=== PATIENT | male | born 1955 | race Caucasian/White ===

== ENCOUNTER → 2018-08-13 | Outpatient (CLI) | payer OTHER ==
[2018-08-13 11:23] LABS: Basophils % (A) 1 %; Eosinophils # (A) 0.1 k/uL (0-0.7); Eosinophils % (A) 2 %; HCT 48.5 % (39.0-53.0); HGB 16.2 gm/dL (13.0-17.5); Lymphocytes # (A) 1.5 k/uL (1.0-4.8); Lymphocytes % (A) 26 %; MCH 31.3 pg (25.0-35.0); MCHC 33.3 g/dL (31.0-37.0); Mean Platelet Volume 7.2; Monocytes # (A) 0.3 k/uL (0-1.0); Monocytes % (A) 6 %; Neutrophils # (A) 3.5 k/uL (1.3-7.7); Neutrophils % (A) 63 %; Platelet Count 238 k/uL (150-450); RBC 5.16 m/uL (4.30-5.90); RDW 13.4 % (11.5-15.5); WBC 5.6 k/uL (3.8-10.6)
[2018-08-13 11:26] LABS: Anion Gap 7 mmol/L; Blood Urea Nitrogen 17 mg/dL (9-20); Calcium 9.9 mg/dL (8.4-10.2); Carbon Dioxide 28 mmol/L (22-30); Chloride 107 mmol/L (98-107); Glucose 85 mg/dL (74-99); Potassium 4.4 mmol/L (3.5-5.1); Sodium 142 mmol/L (137-145)
== END ==
LOC: LABPAT 09:59
PROVIDERS: ATTEND Urology
DX: Z01.812 Encounter for preprocedural laboratory examination (principal); D49.4 Neoplasm of unspecified behavior of bladder; R53.83 Other fatigue
CPT/HCPCS: 36415; 80048; 85025

== ENCOUNTER 2018-08-16 05:49 | Day surgery (SDC) | payer OTHER ==
[2018-08-09 12:14] VITALS: BMI 25.9
--- NOTE | 2018-08-13 17:07 | P.GSHP ---
History of Present Illness H&P Date: 08/13/18 Chief Complaint: Microhematuria The patient is a 63-year-old white male evaluated for microhematuria and voiding symptoms (dysuria and urinary frequency). Computed tomography scan revealed normal kidneys, but bladder wall thickening was noted. Cystoscopy shows a right lateral bladder wall tumor, sessile in appearance. He now comes for resection. - Constitutional Constitutional: Reports chronic headaches, Reports fatigue - Genitourinary (Male) Genitourinary: Reports hematuria Past Medical History Past Medical History: Cancer, Hearing Disorder / Deafness Additional Past Medical History / Comment(s): Current bladder cancer. Chronic back pain. Tinnitus/hard of hearing left ear. History of Any Multi-Drug Resistant Organisms: None Reported Past Surgical History: No Surgical Hx Reported Additional Past Surgical History / Comment(s): Colonsocopy Past Anesthesia/Blood Transfusion Reactions: No Reported Reaction Past Psychological History: No Psychological Hx Reported Smoking Status: Former smoker Past Alcohol Use History: Occasional Additional Past Alcohol Use History / Comment(s): Quit smoking 18 yrs ago. Past Drug Use History: Marijuana Additional Drug Use History / Comment(s): Has medical marijuana card, uses a couple of times per week. Aware no use 24 hrs prior to procedure. - Past Family History Father Family Medical History: Cancer Additional Family Medical History / Comment(s): Colorectal cancer. Medications and Allergies Home Medications Medication Instructions Recorded Confirmed Type Ascorbic Acid [Vitamin C] 1,000 mg PO DAILY 08/09/18 08/09/18 History Glucosamine Sulfate 500 mg PO DAILY 08/09/18 08/09/18 History Multivitamins, Thera [Multivitamin 1 tab PO DAILY 08/09/18 08/09/18 History (formulary)] Vitamin B 250 mg PO DAILY 08/09/18 08/09/18 History Allergies Allergy/AdvReac Type Severity Reaction Status Date / Time No Known Allergies Allergy Verified 08/09/18 11:45 Surgical - Exam - General well developed, well nourished, no distress - Neck no masses, trachea midline - Respiratory normal respiratory effort, clear to auscultation - Cardiovascular Rhythm: regular Abnormal Heart Sounds: no systolic murmur, no diastolic murmur, no rub, no S3 Gallop, no S4 Gallop, no click, no other - Abdomen Abdomen: soft, non tender, no guarding, no rigid, no rebound - Genitourinary normal penis with no external lesions, testicles non-tender - Rectum Rectum: normal sphincter tone, no masses - Psychiatric oriented to time, oriented to person, oriented to place, speech is normal, memory intact Results - Imaging CT scan - abdomen: report reviewed, image reviewed Assessment and Plan (1) Neoplasm of unspecified behavior of bladder Status: Acute Code(s): D49.4 - NEOPLASM OF UNSPECIFIED BEHAVIOR OF BLADDER SNOMED Code(s): 162719980 Plan: The patient was advised that the bladder tumor seen on cystoscopy likely represents urothelial carcinoma of the bladder. He now comes for cystoscopy, TURBT. The rationale for the procedure has been reviewed in detail with the patient. He is aware of potential risks, which include anesthesia, bleeding, infection, and bladder perforation.
[~2018-08-16 05:49] MED LIST: DEXAMETHASONE SOD PHOSPHATE 10 MG/ML 1 ML VIAL IV ONE; HYDROmorphone 0.5 MG/0.5 ML SYRINGE IVP PRN; LACTATED RINGERS 1,000 ML IV SCH; LIDOCAINE 1% 20 ML VIAL (10MG/ML) FOR IV START INTRADERMA PRN; MIDAZOLAM (PF) 2 MG/2 ML VIAL IV PRN; ONDANSETRON 4 MG/2 ML VIAL IVP ONE; SCOPOLAMINE 1.5MG/72HR PATCH TRANSDERM ONE
[2018-08-16 06:40] VITALS: RESP 16
[2018-08-16] MEDS ORDERED: fentaNYL (PF) 50 MCG/ML 2 ML AMP ONE (07:22)
[2018-08-16] MEDS ORDERED: LIDOCAINE 1% INJ 10MG/ML (20 ML MDV) ONE (07:22)
[2018-08-16] MEDS ORDERED: MIDAZOLAM 2 MG/2 ML VIAL ONE (07:22)
[2018-08-16] MEDS ORDERED: ROCURONIUM BROMIDE 10 MG/ML 10 ML VIAL IV ONE (07:22)
[2018-08-16] MEDS ORDERED: SUCCINYLCHOLINE CHLORIDE 100 MG/5 ML SYR IV ONE (07:22)
[2018-08-16] MEDS ORDERED: ePHEDrine SULFATE/0.9% NACL/PF 50 MG/5 ML SYRINGE IV ONE (07:22)
[2018-08-16] MEDS ORDERED: PROPOFOL 10 MG/ML 20 ML VIAL IV ONE (07:22)
[2018-08-16] MEDS ORDERED: NEOSTIGMINE 1 MG/ML 10 ML VIAL ONE (07:22)
[2018-08-16] MEDS ORDERED: GLYCOPYRROLATE 0.2 MG/ML 2 ML VIAL ONE (07:22)
[2018-08-16] MEDS ORDERED: LACTATED RINGERS 1,000 ML IV ONE (08:31)
--- NOTE | 2018-08-16 08:43 | P.OP ---
Date of Procedure: 08/16/18 Preoperative Diagnosis: Bladder tumor Postoperative Diagnosis: Same Procedure(s) Performed: Cystoscopy, transurethral resection of bladder tumor (large) Anesthesia: SABAA Surgeon: Garrison Garcia Estimated Blood Loss (ml): 10 IV fluids (ml): 800 Pathology: other (Right lateral bladder wall tumor fragments, biopsy of prostatic urethra.) Condition: stable Disposition: PACU Indications for Procedure: The patient is a 63-year-old white male evaluated for microhematuria and voiding symptoms (dysuria and urinary frequency). Computed tomography scan revealed normal kidneys, but bladder wall thickening was noted. Cystoscopy shows a right lateral bladder wall tumor, sessile in appearance. He now comes for resection. Operative Findings: Right lateral bladder wall tumor, sessile in appearance and likely muscle invasive. Description of Procedure: The patient was taken in the operating room and placed in the dorsal lithotomy position, with his legs supported in Francisco stirrups. The external genitalia was prepped and draped sterilely. The 24-Ugandan Storz resectoscope sheath was introduced into the bladder. The bladder was inspected. Both ureteral orifices were of normal anatomic location and configuration, and clear urine effluxed from both. The entire bladder was examined, revealing a sessile tumor on the right lateral bladder wall, covering an area of approximately 6 cm. No tumors were seen elsewhere in the bladder. The prostate was partially occluded, with a bilobar configuration. Using the cutting loop, the tumor was resected down to the muscle. Tumor was seen within the muscle bundles, consistent with muscular invasion. Excellent hemostasis was attained. Despite the fact that deep resection was performed, there was no evidence of bladder perforation. The resected tissue was saved and sent for pathologic examination. An 18-Ugandan Krause catheter was inserted. The return was essentially clear. The patient tolerated the procedure well. He was taken to the recovery room in stable condition.
[2018-08-16 09:05] VITALS: TEMP 97.3
[2018-08-16 11:29] VITALS: BP 135/71; PULSE 65
== END 2018-08-16 11:27 | disposition home or self-care (01) ==
LOC: OR 05:49
PROVIDERS: ATTEND Urology
DX: C67.2 Malignant neoplasm of lateral wall of bladder (principal); H91.90 Unspecified hearing loss, unspecified ear; Z87.891 Personal history of nicotine dependence; Z79.899 Other long term (current) drug therapy
CPT/HCPCS: 88305; 88307; 52240; J2250; J1100; J2710; J2405; J0690; J2001; J3010; J0330; J2704

== ENCOUNTER 2018-11-23 01:28 | Emergency (ER) | payer OTHER ==
[2018-11-23 01:38] VITALS: BP 117/78; PULSE 54; RESP 18; TEMP 97.5
--- NOTE | 2018-11-23 01:56 | ED ---
General Adult HPI - General Chief complaint: Wound/Laceration Stated complaint: port issue Time Seen by Provider: 11/23/18 01:42 Source: patient Mode of arrival: ambulatory Limitations: no limitations - History of Present Illness Initial comments: This patient is 63-year-old man with history of bladder cancer, who states that he is currently receiving chemotherapy infusion, and states that the infusion needle was probably dislodged from the infusion port. The patient states that he had been moving when the line at having a lot of chair and was tugged. This occurred about one in the afternoon. The patient did attempt to reach the on- call oncologist, phone [phone], and states he was told to go to the nearest emergency room. Patient states that his head oncologist is Dr. Gela Willard. Onset/Timin -: hour(s) Location: chest Improves with: none Worsens with: none Associated Symptoms: denies other symptoms - Related Data Home Medications Medication Instructions Recorded Confirmed Ascorbic Acid [Vitamin C] 1,000 mg PO DAILY 08/09/18 08/09/18 Glucosamine Sulfate 500 mg PO DAILY 08/09/18 08/09/18 Multivitamins, Thera [Multivitamin 1 tab PO DAILY 08/09/18 08/09/18 (formulary)] Vitamin B 250 mg PO DAILY 08/09/18 08/09/18 Allergies Allergy/AdvReac Type Severity Reaction Status Date / Time No Known Allergies Allergy Verified 11/23/18 01:38 Review of Systems ROS Statement: Those systems with pertinent positive or pertinent negative responses have been documented in the HPI. ROS Other: All systems not noted in ROS Statement are negative. Constitutional: Denies: fever, chills Respiratory: Denies: cough, dyspnea Cardiovascular: Denies: chest pain Skin: Reports: as per HPI. Denies: rash Hematological/Lymphatic: Denies: easy bleeding Past Medical History Past Medical History: Cancer, Hearing Disorder / Deafness Additional Past Medical History / Comment(s): Current bladder cancer. Chronic back pain. Tinnitus/hard of hearing left ear. History of Any Multi-Drug Resistant Organisms: None Reported Past Surgical History: No Surgical Hx Reported Additional Past Surgical History / Comment(s): Colonsocopy Past Anesthesia/Blood Transfusion Reactions: No Reported Reaction Past Psychological History: No Psychological Hx Reported Smoking Status: Former smoker Past Alcohol Use History: Occasional Past Drug Use History: Marijuana - Past Family History Father Family Medical History: Cancer Additional Family Medical History / Comment(s): Colorectal cancer. General Exam Limitations: no limitations General appearance: alert, in no apparent distress Head exam: Present: atraumatic, normocephalic Respiratory exam: Present: normal lung sounds bilaterally. Absent: respiratory distress, wheezes, rales, rhonchi, stridor Cardiovascular Exam: Present: regular rate, normal rhythm, normal heart sounds. Absent: systolic murmur, diastolic murmur, rubs, gallop GI/Abdominal exam: Present: soft. Absent: distended, tenderness, guarding, rebound Skin exam: Present: warm, dry, normal color, other (The patient does have a superficial laceration to the anterior chest wall extending from the port location down the chest wall approximately 2-1/2 inches. The patient's infusion needle is partially embedded in the skin at that point. There is crusting of what appears to be dried chemo infusion which has dripped down the anterior chest wall from the needle site. There is not significant subcutaneous swelling or erythema.) Course Vital Signs 11/23/18 01:31 Temperature 97.5 F L Pulse Rate 54 L Respiratory 18 Rate Blood Pressure 117/78 O2 Sat by Pulse 99 Oximetry - Reevaluation(s) Reevaluation #1: 11/23/18 02:19 I paged the on-call oncologist covering for Dr. Willard, and spoke with Dr. Mcnair, who did request that we not restart the infusion line and that the patient be seen at the infusion center in the morning to have this replaced. Medical Decision Making - Medical Decision Making 63-year-old man whose infusion needle had dislodged and is troubled on his chest wall resulting in superficial laceration. On the initial exam it does not appear that there has been significant amount of chemotherapy agent that has infiltrated into the skin. There is not much erythema. No soft tissue swelling. No tissue necrosis at this point. I discussed the findings with the on-call oncologist, and they do request that we discontinue the needle and stop the pump. I did discontinue the needle and stop his infusion pump. Patient's chest wall will be dressed and he will report to the infusion center first thing this morning Disposition Clinical Impression: Abrasion, Infiltration, infusion or chemotherapeutic agent Disposition: HOME SELF-CARE Condition: Fair Instructions (If sedation given, give patient instructions): Abrasion (ED) Is patient prescribed a controlled substance at d/c from ED?: No Referrals: Phillip Chun MD [Primary Care Provider] - 1-2 days
== END 2018-11-23 03:41 | disposition home or self-care (01) ==
LOC: EC 01:28
DX: T80.89XA Other complications following infusion, transfusion and therapeutic injection, initial encounter (principal); S21.111A Laceration without foreign body of right front wall of thorax without penetration into thoracic cavity, initial encounter; Z85.51 Personal history of malignant neoplasm of bladder; Z92.21 Personal history of antineoplastic chemotherapy; Z87.891 Personal history of nicotine dependence
CPT/HCPCS: 99283

== ENCOUNTER → 2019-01-08 | Outpatient (CLI) | payer OTHER ==
--- NOTE | 2019-01-08 16:49 | XR ---
Lumbar sacral spine HISTORY: Low back pain 5 views of lumbosacral spine There is a levoscoliosis centered at L2. There is bilateral L5 spondylolysis with anterolisthesis gra de 1 L5-S1, retrolisthesis grade 1L4-5. Loss of disc height is greatest at L5-S1 but also present L3- 4, L1-L2. There is multilevel spondylosis present. Sclerosis present in the posterior elements of the lower lumbar spine. Anterior inferior margin of L1 show some focal sclerosis, there is likely Schmor l's node superior endplate L2. IMPRESSION: Degenerative disc disease, spondylolysis, spinal listhesis, facet arthropathy.
== END | disposition home or self-care (01) ==
LOC: RADXRMAIN 14:26
PROVIDERS: ATTEND Family Medicine
DX: M43.16 Spondylolisthesis, lumbar region (principal); M43.17 Spondylolisthesis, lumbosacral region; M51.37 Other intervertebral disc degeneration, lumbosacral region; M46.96 Unspecified inflammatory spondylopathy, lumbar region; M46.97 Unspecified inflammatory spondylopathy, lumbosacral region
CPT/HCPCS: 72110

== ENCOUNTER 2021-01-19 08:21 | Observation (INO) | payer BC, OTHER ==
--- NOTE | 2021-01-19 08:49 | ED ---
Extremity Problem HPI - General Chief complaint: Extremity Problem,Nontraumatic Stated complaint: Hip/groin pain-leg swelling Time Seen by Provider: 01/19/21 08:31 Source: patient, RN notes reviewed Mode of arrival: ambulatory Limitations: no limitations - History of Present Illness Initial comments: Patient is a 65-year-old male presenting for chief complaint of right leg pain and edema when compared bilaterally. Patient denies any numbness in limb, no pain present on palpation, pulses are present. Patient reports he has chronic right leg pain for the past 3 months that acutely is gotten worse in the past week. Patient has history of bladder cancer in last 2 years. - Related Data Home Medications Medication Instructions Recorded Confirmed Ascorbic Acid [Vitamin C] 1,000 mg PO AC-LUNCH 08/09/18 01/19/21 Glucosamine Sulfate 500 mg PO AC-LUNCH 08/09/18 01/19/21 Ferrous Sulfate [Feosol] 325 mg PO AC-LUNCH 01/19/21 01/19/21 Ibuprofen [Motrin Ib] 400 mg PO Q8H 01/19/21 01/19/21 Allergies Allergy/AdvReac Type Severity Reaction Status Date / Time No Known Allergies Allergy Verified 01/19/21 09:00 Review of Systems ROS Statement: Those systems with pertinent positive or pertinent negative responses have been documented in the HPI. ROS Other: All systems not noted in ROS Statement are negative. Past Medical History Past Medical History: Cancer, Hearing Disorder / Deafness Additional Past Medical History / Comment(s): Current bladder cancer. Chronic back pain. Tinnitus/hard of hearing left ear. History of Any Multi-Drug Resistant Organisms: None Reported Past Surgical History: No Surgical Hx Reported Additional Past Surgical History / Comment(s): Colonsocopy Past Anesthesia/Blood Transfusion Reactions: No Reported Reaction Past Psychological History: No Psychological Hx Reported Smoking Status: Never smoker Past Alcohol Use History: Occasional Past Drug Use History: Marijuana - Past Family History Father Family Medical History: Cancer Additional Family Medical History / Comment(s): Colorectal cancer. General Exam Limitations: no limitations General appearance: alert, in no apparent distress Head exam: Present: atraumatic, normocephalic, normal inspection Eye exam: Present: normal appearance, PERRL, EOMI. Absent: scleral icterus, conjunctival injection, periorbital swelling ENT exam: Present: normal exam, mucous membranes moist Neck exam: Present: normal inspection. Absent: tenderness, meningismus, lymphadenopathy Respiratory exam: Present: normal lung sounds bilaterally. Absent: respiratory distress, wheezes, rales, rhonchi, stridor Cardiovascular Exam: Present: regular rate, normal rhythm, normal heart sounds. Absent: systolic murmur, diastolic murmur, rubs, gallop, clicks GI/Abdominal exam: Present: soft, normal bowel sounds. Absent: distended, tenderness, guarding, rebound, rigid Rectal exam: Present: deferred Extremities exam: Present: normal inspection, full ROM, normal capillary refill. Absent: tenderness, pedal edema, joint swelling, calf tenderness Back exam: Present: normal inspection Neurological exam: Present: alert, oriented X3, CN II-XII intact Psychiatric exam: Present: normal affect, normal mood Skin exam: Present: warm, dry, intact, normal color. Absent: rash Course Vital Signs 01/19/21 01/19/21 08:26 09:28 Temperature 98.8 F Pulse Rate 61 Respiratory 20 18 Rate Blood Pressure 131/84 O2 Sat by Pulse 97 Oximetry Medical Decision Making - Medical Decision Making Case discussed with Dr. jeffries. Patient be admitted for right leg swelling, possible cellulitis, concern for vascular issue. Patient will have evaluation by orthopedics, vascular CT showed possible cellulitis was given a dose of IV antibiotics. - Lab Data Result diagrams: 01/19/21 09:56 01/19/21 09:56 Lab Results 01/19/21 01/19/21 01/19/21 Range/Units 09:56 09:56 09:56 WBC 5.1 (3.8-10.6) k/uL RBC 4.56 (4.30-5.90) m/uL Hgb 15.0 (13.0-17.5) gm/dL Hct 43.9 (39.0-53.0) % MCV 96.3 (80.0-100.0) fL MCH 32.8 (25.0-35.0) pg MCHC 34.0 (31.0-37.0) g/dL RDW 12.9 (11.5-15.5) % Plt Count 200 (150-450) k/uL MPV 7.4 Neutrophils % 69 % Lymphocytes % 19 % Monocytes % 8 % Eosinophils % 2 % Basophils % 1 % Neutrophils # 3.5 (1.3-7.7) k/uL Lymphocytes # 1.0 (1.0-4.8) k/uL Monocytes # 0.4 (0-1.0) k/uL Eosinophils # 0.1 (0-0.7) k/uL Basophils # 0.0 (0-0.2) k/uL PT 9.7 (9.0-12.0) sec INR 0.9 (<1.2) APTT 24.3 (22.0-30.0) sec Sodium 141 (137-145) mmol/L Potassium 4.2 (3.5-5.1) mmol/L Chloride 109 H (98-107) mmol/L Carbon Dioxide 24 (22-30) mmol/L Anion Gap 8 mmol/L BUN 17 (9-20) mg/dL Creatinine 0.66 (0.66-1.25) mg/dL Est GFR (CKD-EPI)AfAm >90 (>60 ml/min/1.73 sqM) Est GFR (CKD-EPI)NonAf >90 (>60 ml/min/1.73 sqM) Glucose 110 H (74-99) mg/dL Plasma Lactic Acid Carlo (0.7-2.0) mmol/L Calcium 9.9 (8.4-10.2) mg/dL Total Bilirubin 0.4 (0.2-1.3) mg/dL AST 29 (17-59) U/L ALT 27 (4-49) U/L Alkaline Phosphatase 89 (38-126) U/L Total Protein 7.0 (6.3-8.2) g/dL Albumin 3.9 (3.5-5.0) g/dL 01/19/21 Range/Units 09:56 WBC (3.8-10.6) k/uL RBC (4.30-5.90) m/uL Hgb (13.0-17.5) gm/dL Hct (39.0-53.0) % MCV (80.0-100.0) fL MCH (25.0-35.0) pg MCHC (31.0-37.0) g/dL RDW (11.5-15.5) % Plt Count (150-450) k/uL MPV Neutrophils % % Lymphocytes % % Monocytes % % Eosinophils % % Basophils % % Neutrophils # (1.3-7.7) k/uL Lymphocytes # (1.0-4.8) k/uL Monocytes # (0-1.0) k/uL Eosinophils # (0-0.7) k/uL Basophils # (0-0.2) k/uL PT (9.0-12.0) sec INR (<1.2) APTT (22.0-30.0) sec Sodium (137-145) mmol/L Potassium (3.5-5.1) mmol/L Chloride (98-107) mmol/L Carbon Dioxide (22-30) mmol/L Anion Gap mmol/L BUN (9-20) mg/dL Creatinine (0.66-1.25) mg/dL Est GFR (CKD-EPI)AfAm (>60 ml/min/1.73 sqM) Est GFR (CKD-EPI)NonAf (>60 ml/min/1.73 sqM) Glucose (74-99) mg/dL Plasma Lactic Acid Carlo 0.8 (0.7-2.0) mmol/L Calcium (8.4-10.2) mg/dL Total Bilirubin (0.2-1.3) mg/dL AST (17-59) U/L ALT (4-49) U/L Alkaline Phosphatase (38-126) U/L Total Protein (6.3-8.2) g/dL Albumin (3.5-5.0) g/dL Disposition Clinical Impression: Right leg swelling, Cellulitis of right leg, Right hip pain Disposition: ADMITTED IP TO THIS [facility] Condition: Fair Referrals: Nonstaff,Physician [REFERRING] - 1-2 days
--- NOTE | 2021-01-19 09:39 | US ---
EXAMINATION TYPE: US venous doppler duplex LE RT DATE OF EXAM: 01/19/2021 9:25 AM COMPARISON: NONE CLINICAL HISTORY: pain. Pain. No redness. No hx DVT. Not on blood thinners. No injury. SIDE PERFORMED: Right TECHNIQUE: The lower extremity deep venous system is examined utilizing real time linear array sonog jeanne with graded compression, doppler sonography and color-flow sonography. VESSELS IMAGED: Common Femoral Vein Deep Femoral Vein Greater Saphenous Vein * Femoral Vein Popliteal Vein Small Saphenous Vein * Proximal Calf Veins (* superficial vessels) Right Leg: Negative for DVT IMPRESSION: No evidence for DVT at this time.
[2021-01-19] MEDS ORDERED: SODIUM CHLORIDE 0.9% 500 ML 500 ML IV ONE (09:44)
[2021-01-19 10:06] LABS: Basophils % (A) 1 %; Eosinophils # (A) 0.1 k/uL (0-0.7); Eosinophils % (A) 2 %; HCT 43.9 % (39.0-53.0); Lymphocytes % (A) 19 %; MCH 32.8 pg (25.0-35.0); MCV 96.3 fL (80.0-100.0); Mean Platelet Volume 7.4; Monocytes # (A) 0.4 k/uL (0-1.0); Monocytes % (A) 8 %; Neutrophils # (A) 3.5 k/uL (1.3-7.7); Neutrophils % (A) 69 %; Platelet Count 200 k/uL (150-450); RBC 4.56 m/uL (4.30-5.90); RDW 12.9 % (11.5-15.5); WBC 5.1 k/uL (3.8-10.6)
[2021-01-19 10:16] LABS: ALT 27 U/L (4-49); AST 29 U/L (17-59); African American GFR (CKD) >90 (>60 ml/min/1.73 sqM); Albumin 3.9 g/dL (3.5-5.0); Alkaline Phosphatase 89 U/L (38-126); Anion Gap 8 mmol/L; Blood Urea Nitrogen 17 mg/dL (9-20); Calcium 9.9 mg/dL (8.4-10.2); Carbon Dioxide 24 mmol/L (22-30); Chloride 109 mmol/L (98-107); Glucose 110 mg/dL (74-99); Non-African American GFR(CKD) >90 (>60 ml/min/1.73 sqM); Potassium 4.2 mmol/L (3.5-5.1); Sodium 141 mmol/L (137-145); Total Bilirubin 0.4 mg/dL (0.2-1.3)
[2021-01-19 10:23] LABS: INR 0.9 (<1.2); Partial Thromboplastin Time 24.3 sec (22.0-30.0); Prothrombin Time 9.7 sec (9.0-12.0)
--- NOTE | 2021-01-19 11:07 | CT ---
EXAMINATION TYPE: CT abdomen pelvis w con DATE OF EXAM: 01/19/2021 COMPARISON: None HISTORY: Ft leg swelling, abd [abd pain, hx of bladder CT CT DLP: 1153.9 mGycm CONTRAST: CT scan of the abdomen and pelvis is performed without Oral Contrast and with IV Contrast, patient in jected with 100 mL of Isovue 300. FINDINGS: LUNG BASES-: No visible nodule. No infiltrate. LIVER/GB: Small gallstones identified. No space occupying hepatic lesion. Biliary tree is of javi l caliber. PANCREAS: No inflammation. No distinct mass. SPLEEN: No splenic enlargement. No lesion seen. Multiple splenic granulomas noted. ADRENALS: No nodule. No thickening. KIDNEYS/BLADDER: No hydronephrosis. No nephrolithiasis. No distinct renal mass. Distention of the urinary bladder noted. BOWEL: Normal appendix. Normal bowel caliber. No inflammation. GENITAL ORGANS: No gross abnormality. LYMPH NODES: No greater than 1cm abdominal or pelvic lymph nodes are appreciated. AORTA: No significant abnormality. OSSEOUS STRUCTURES: No significant abnormality is seen. OTHER: Mild subcutaneous strandy attenuation within the upper right thigh could be related to celluli tis. Correlate clinically. IMPRESSION: 1. Mild subcutaneous strandy attenuation within the upper right thigh could be related to cellulitis. Correlate clinically. 2. Urinary bladder distention. 3. Gallstones.
[2021-01-19] MEDS ORDERED: VANCOMYCIN IV PER PHARMACY 1 EACH MISC MISCELLANE PRN (11:57)
[2021-01-19] MEDS ORDERED: NALOXONE 0.4 MG/ML 1 ML VIAL IV PRN (12:00)
[2021-01-19] MEDS ORDERED: KETOROLAC 15 MG/ML 1 ML VIAL IVP PRN (12:00)
[2021-01-19] MEDS ORDERED: HYDROcodone/APAP 5-325MG 1 EACH TAB PO PRN (12:00)
[2021-01-19] MEDS ORDERED: ACETAMINOPHEN TAB 325 MG TAB PO PRN (12:00)
[2021-01-19] MEDS ORDERED: KETOROLAC 15 MG/ML 1 ML VIAL IVP STA (12:01)
[2021-01-19] MEDS ORDERED: VANCOMYCIN 1,500 MG in SODIUM CHLORIDE 0.9% 250 ML IVPB STA (12:01)
[2021-01-19 12:22] LABS: Appearance,Urine Clear (Clear); Bilirubin,Urine Negative (Negative); Blood,Urine Negative (Negative); Color,Urine Light Yellow; Glucose,Urine (UA) Negative (Negative); Ketones,Urine Negative (Negative); Leukocyte Esterase,Urine Negative (Negative); Nitrite,Urine Negative (Negative); PH, Urine 5.5 (5.0-8.0); Protein,Urine Negative (Negative); Urobilinogen,Urine <2.0 mg/dL (<2.0)
[2021-01-19] MEDS ORDERED: ONDANSETRON 4 MG/2 ML VIAL IVP PRN (13:49)
--- NOTE | 2021-01-19 14:42 | P.GSCN ---
<Gale Cotton - Last Filed: 01/19/21 15:29> History of Present Illness Consult date: 01/19/21 Reason for Consult: Lower extremity swelling, peripheral vascular disease Requesting physician: James Gao History of present illness: This is 65-year-old male who presented to the emergency department with complaints of right lower extremity pain and swelling. Patient states he has been experiencing right lower extremity pain since May of this past year which he takes ibuprofen daily. States he has lower back problems/pain which he believes has been causing his right lower extremity pain however he noticed yesterday he was having increased amount of pain and having swelling. He has a past medical history of bladder cancer last radiation treatment 2 years ago at [facility], he denies any other past medical history. Denies any medications at home other than ibuprofen as needed for pain. He has no previous history of coronary artery disease, or peripheral arterial or peripheral vascular disease. Correia states he is very active however in the last 2-3 days he states that he feels that he has been more short of breath with some mild chest pain and pain to the right lower extremity. Patient denies any fever or chills. He underwent a right lower extremity venous duplex which was negative for DVT. He also underwent a CT of abdomen and pelvis that showed mild subcutaneous stranding attenuation within the upper right thigh could be related to cellulitis. Correlate clinically. Urinary bladder distention and gallstones. Review of Systems - Constitutional Constitutional Comment(s): A 14 point review of systems was completed and all pertinent positives and negatives as stated in the HPI. Past Medical History Past Medical History: Cancer, Hearing Disorder / Deafness Additional Past Medical History / Comment(s): Current bladder cancer. Chronic back pain. Tinnitus/hard of hearing left ear. History of Any Multi-Drug Resistant Organisms: None Reported Past Surgical History: No Surgical Hx Reported Additional Past Surgical History / Comment(s): Colonsocopy Past Anesthesia/Blood Transfusion Reactions: No Reported Reaction Past Psychological History: No Psychological Hx Reported Smoking Status: Never smoker Past Alcohol Use History: Occasional Past Drug Use History: Marijuana - Past Family History Father Family Medical History: Cancer Additional Family Medical History / Comment(s): Colorectal cancer. Medications and Allergies Home Medications Medication Instructions Recorded Confirmed Type Ascorbic Acid [Vitamin C] 1,000 mg PO AC-LUNCH 08/09/18 01/19/21 History Glucosamine Sulfate 500 mg PO AC-LUNCH 08/09/18 01/19/21 History Ferrous Sulfate [Feosol] 325 mg PO AC-LUNCH 01/19/21 01/19/21 History Ibuprofen [Motrin Ib] 400 mg PO Q8H 01/19/21 01/19/21 History Allergies Allergy/AdvReac Type Severity Reaction Status Date / Time No Known Allergies Allergy Verified 01/19/21 09:00 Surgical - Exam Vital Signs Temp Pulse Resp BP Pulse Ox 98.8 F 61 20 131/84 97 01/19/21 08:26 01/19/21 08:26 01/19/21 08:26 01/19/21 08:26 01/19/21 08:26 General appearance: The patient is alert, oriented, appears in no acute distress. HET: Head is normocephalic and atraumatic. Neck: Supple without lymphadenopathy. Trachea midline. Heart: S1 S2. Regular rate and rhythm. Lungs: Clear to auscultation.. Abdomen: Soft, nontender, nondistended. Extremities: Normal skin color and turgor. Right lower extremity with +1 edema extending into thigh, tenderness to palpation. Good capillary refill. Palpable dorsalis pedis pulses bilaterally. Neurological: No focal deficits. Alert and oriented 3. Strength and sensation are grossly intact. Results - Labs 01/19/21 09:56 01/19/21 09:56 Abnormal Lab Results - Last 24 Hours (Table) 01/19/21 Range/Units 09:56 Chloride 109 H (98-107) mmol/L Glucose 110 H (74-99) mg/dL Diabetes panel 01/19/21 Range/Units 09:56 Sodium 141 (137-145) mmol/L Potassium 4.2 (3.5-5.1) mmol/L Chloride 109 H (98-107) mmol/L Carbon Dioxide 24 (22-30) mmol/L BUN 17 (9-20) mg/dL Creatinine 0.66 (0.66-1.25) mg/dL Glucose 110 H (74-99) mg/dL Calcium 9.9 (8.4-10.2) mg/dL AST 29 (17-59) U/L ALT 27 (4-49) U/L Alkaline Phosphatase 89 (38-126) U/L Total Protein 7.0 (6.3-8.2) g/dL Albumin 3.9 (3.5-5.0) g/dL Calcium panel 01/19/21 Range/Units 09:56 Calcium 9.9 (8.4-10.2) mg/dL Albumin 3.9 (3.5-5.0) g/dL Pituitary panel 01/19/21 Range/Units 09:56 Sodium 141 (137-145) mmol/L Potassium 4.2 (3.5-5.1) mmol/L Chloride 109 H (98-107) mmol/L Carbon Dioxide 24 (22-30) mmol/L BUN 17 (9-20) mg/dL Creatinine 0.66 (0.66-1.25) mg/dL Glucose 110 H (74-99) mg/dL Calcium 9.9 (8.4-10.2) mg/dL Adrenal panel 01/19/21 Range/Units 09:56 Sodium 141 (137-145) mmol/L Potassium 4.2 (3.5-5.1) mmol/L Chloride 109 H (98-107) mmol/L Carbon Dioxide 24 (22-30) mmol/L BUN 17 (9-20) mg/dL Creatinine 0.66 (0.66-1.25) mg/dL Glucose 110 H (74-99) mg/dL Calcium 9.9 (8.4-10.2) mg/dL Total Bilirubin 0.4 (0.2-1.3) mg/dL AST 29 (17-59) U/L ALT 27 (4-49) U/L Alkaline Phosphatase 89 (38-126) U/L Total Protein 7.0 (6.3-8.2) g/dL Albumin 3.9 (3.5-5.0) g/dL - Imaging Comments: Venous Doppler right lower extremity negative for DVT CT abdomen and pelvis shows mild subcutaneous stranding attenuation within the upper right thigh could be related to cellulitis. Correlate clinically. Urinary bladder distention. Gallstones. Assessment and Plan Assessment: 1. Right lower extremity edema 2. Right lower extremity pain 3. History of bladder cancer status post radiation Plan: 1. Continue current Medical management 2. Continue IV antibiotics as ordered 3. Agree with orthopedic consultation 4. Further recommendations forthcoming from vascular surgeon Thank you for this consultation, we will continue to follow. The impression and plan of care has been dictated as directed. I performed a history and examination of this patient, discussed the same with the dictator. I agree with the dictator's note ,documented as a scribe. Any additional findings or plans will be noted. <Josse Gomez - Last Filed: 01/19/21 17:52> Surgical - Exam Vital Signs Temp Pulse Resp BP Pulse Ox 98.8 F 61 20 131/84 97 01/19/21 08:26 01/19/21 08:26 01/19/21 08:26 01/19/21 08:26 01/19/21 08:26 Results - Labs 01/19/21 09:56 01/19/21 09:56 Abnormal Lab Results - Last 24 Hours (Table) 01/19/21 Range/Units 09:56 Chloride 109 H (98-107) mmol/L Glucose 110 H (74-99) mg/dL Diabetes panel 01/19/21 Range/Units 09:56 Sodium 141 (137-145) mmol/L Potassium 4.2 (3.5-5.1) mmol/L Chloride 109 H (98-107) mmol/L Carbon Dioxide 24 (22-30) mmol/L BUN 17 (9-20) mg/dL Creatinine 0.66 (0.66-1.25) mg/dL Glucose 110 H (74-99) mg/dL Calcium 9.9 (8.4-10.2) mg/dL AST 29 (17-59) U/L ALT 27 (4-49) U/L Alkaline Phosphatase 89 (38-126) U/L Total Protein 7.0 (6.3-8.2) g/dL Albumin 3.9 (3.5-5.0) g/dL Calcium panel 01/19/21 Range/Units 09:56 Calcium 9.9 (8.4-10.2) mg/dL Albumin 3.9 (3.5-5.0) g/dL Pituitary panel 01/19/21 Range/Units 09:56 Sodium 141 (137-145) mmol/L Potassium 4.2 (3.5-5.1) mmol/L Chloride 109 H (98-107) mmol/L Carbon Dioxide 24 (22-30) mmol/L BUN 17 (9-20) mg/dL Creatinine 0.66 (0.66-1.25) mg/dL Glucose 110 H (74-99) mg/dL Calcium 9.9 (8.4-10.2) mg/dL Adrenal panel 01/19/21 Range/Units 09:56 Sodium 141 (137-145) mmol/L Potassium 4.2 (3.5-5.1) mmol/L Chloride 109 H (98-107) mmol/L Carbon Dioxide 24 (22-30) mmol/L BUN 17 (9-20) mg/dL Creatinine 0.66 (0.66-1.25) mg/dL Glucose 110 H (74-99) mg/dL Calcium 9.9 (8.4-10.2) mg/dL Total Bilirubin 0.4 (0.2-1.3) mg/dL AST 29 (17-59) U/L ALT 27 (4-49) U/L Alkaline Phosphatase 89 (38-126) U/L Total Protein 7.0 (6.3-8.2) g/dL Albumin 3.9 (3.5-5.0) g/dL Assessment and Plan Plan: No vascular surgical intervention at this time.
--- NOTE | 2021-01-19 15:09 | P.CNOR ---
History of Present Illness - [facility] Consult date: 01/19/21 Consult reason: joint pain (Right hip pain), low back pain History of present illness: Patient is a 65-year-old male who presented to [facility] today for evaluation of right lower extremity swelling and pain. Patient states that over the last few day's he's noticed significant swelling of the right lower extremity and compared to the contralateral side. He is also having some discomfort throughout the right lower extremity mainly in the hip area. Patient denies any recent traumas, this including falls. Patient is a known history of low back pain, he's had this for many months. He's been taking ibuprofen for this, he has not been evaluated by any surgical special for the back pain. With the back pain that he has, he notes radiation of the right hip/groin area. He gets occasional sore as in the lower extremity. He also states to some numbness/tingling in the right toes. Patient denies any paresthesias of the left lower extremity or radiating knee. He denies any left hip pain. He denies any pain in the bilateral upper extremities. He denies any numbness or tingling in the bilateral upper extremities. He denies any loss of bowel or bladder function. He denies any numbness or tingling genital or perineal region. Patient does have a history of bladder cancer, this was diagnosed about 2 years ago. Patient received chemo and radiation for this. He is scheduled for follow-up with his urologist regarding this in the next week or 2. Review of Systems Constitutional: Reports as per [facility] Past Medical History Past Medical History: Cancer, Hearing Disorder / Deafness Additional Past Medical History / Comment(s): Current bladder cancer. Chronic back pain. Tinnitus/hard of hearing left ear. History of Any Multi-Drug Resistant Organisms: None Reported Past Surgical History: No Surgical Hx Reported Additional Past Surgical History / Comment(s): Colonsocopy Past Anesthesia/Blood Transfusion Reactions: No Reported Reaction Past Psychological History: No Psychological Hx Reported Smoking Status: Never smoker Past Alcohol Use History: Occasional Past Drug Use History: Marijuana - Past Family History Father Family Medical History: Cancer Additional Family Medical History / Comment(s): Colorectal cancer. Medications and Allergies Home Medications Medication Instructions Recorded Confirmed Type Ascorbic Acid [Vitamin C] 1,000 mg PO AC-LUNCH 08/09/18 01/19/21 History Glucosamine Sulfate 500 mg PO AC-LUNCH 08/09/18 01/19/21 History Ferrous Sulfate [Feosol] 325 mg PO AC-LUNCH 01/19/21 01/19/21 History Ibuprofen [Motrin Ib] 400 mg PO Q8H 01/19/21 01/19/21 History Allergies Allergy/AdvReac Type Severity Reaction Status Date / Time No Known Allergies Allergy Verified 01/19/21 09:00 Physical Examination Gen: AOx3, NAD VSS stable at this time Integument: No open lesions or sores are visualized throughout bilateral lower extremities, cervical, thoracic, lumbar spine There is notable soft tissue swelling in the right lower extremity when compared to the left lower extremity. Palpation: No tenderness with palpation to the cervical or thoracic spine, this in the midline and paraspinal region Mild tenderness with palpation to the lumbar spine mainly in the paraspinal regions on the right side ROM: Full range of motion in all major muscle groups in the bilateral upper extremities and lower extremities Notable groin pain with hip flexion along with internal and external rotation of the right lower extremity Sensory Exam: Senory exam to light touch is intact C5-T1 Senosry exam to light touch is intact L2-S1 Motor: 55 strength is appreciated in the bilateral upper extremities with shoulder abduction, forward elevation, elbow flexion, elbow extension and wrist extension, wrist flexion, business information consultant strength 5-5 strength is noted bilaterally with hip flexion, knee extension, knee flexion, plantar flexion, dorsiflexion, EHL, FHL Reflexes: 2/4 in all UE and LE Negative Hoffmans, babinski and clonus bilaterally Special Test: Logroll maneuver reproduces no significant groin pain bilaterally Straight leg raise does reproduce symptoms on the right hand side, negative on the left Results - Labs Labs: Abnormal Lab Results - Last 24 Hours (Table) 01/19/21 Range/Units 09:56 Chloride 109 H (98-107) mmol/L Glucose 110 H (74-99) mg/dL H & H 01/19/21 Range/Units 09:56 Hgb 15.0 (13.0-17.5) gm/dL Hct 43.9 (39.0-53.0) % Coagulation 01/19/21 Range/Units 09:56 INR 0.9 (<1.2) Result Diagrams: 01/19/21 09:56 01/19/21 09:56 Assessment and Plan Assessment: Low back pain Right hip pain Right lower extremity swelling History of bladder cancer Plan: I was able to discuss the case, including physical exam findings with my attending Dr. Smith. No emergent orthopedic surgical intervention recommended at this time Await x-rays of the lumbar spine along with right hip Patient is demonstrating mild symptoms of a possible lumbar radiculopathy and also hip arthritis. Patient is only taking Motrin at this time. Patient may benefit from oral muscle relaxers versus Medrol Dosepak. We'll make recommendations based on x-ray findings. Recommend weight-bear as tolerated Pain control, continue use of anti-inflammatories at this time we'll make further recommendations based on x-ray findings Other medical specialty recommendations Further recommendations to follow Time with Patient: Less than 30
--- NOTE | 2021-01-19 15:38 | XR ---
Lumbar spine HISTORY: Low back pain, right hip pain 3 views of the lumbar spine correlated to prior exam 01/08/2019, CT 01/19/2021 There is a bladder filled with contrast material, contrast possibly within the distal ureter on the r ight. Probable phleboliths are present within the pelvis. Levoscoliosis is again noted centered at ap proximately L2. Lumbar vertebral bodies show preserved height, stable mineralization. There is an ant erolisthesis grade 1 L5-S1, question spondylolysis at L5. There is multilevel spondylosis. Loss of di sc height is present at intervertebral levels especially at L5-S1 with associated vacuum phenomenon n oted L3-4, loss of disc height also present L3-4, L1-L2. Sclerosis is present in the posterior elemen ts of the lumbar spine consistent with facet arthropathy. Contrast material also noted in the renal collecting systems likely from prior CT same day IMPRESSION: Spondylolysis L5, spinal listhesis, degenerative disc disease, facet arthropathy, spinal curvature0
--- NOTE | 2021-01-19 15:39 | XR ---
Right hip HISTORY: Right leg swelling 2 views of the right hip correlated to CT scan same date Some mild marginal spurring is present, concentric joint space loss is mild. No evident fracture or d islocation. Mild degenerative changes are present at the symphysis pubis. IMPRESSION: Mild osteoarthritic changes.
--- NOTE | 2021-01-19 15:55 | P.HPIM ---
History of Present Illness H&P Date: 01/19/21 this is a very pleasant 65-year-old male who presented to the emergency department with right lower extremity swelling and pain that had been progressively getting worse since yesterday. Patient states he is normally very active and walks and swims a few times a week and had been working in his garden and noticed it was more difficult and painful on that right lower extremity with walking back and forth in the garden. Patient continues with Motrin as needed for pain and does have chronic back pain that he states has been ongoing for months and is usually relieved with Motrin. patient is having some right hip and L-spine discomfort that radiates to the lower extremity. patient follows with Dr. Mj Jansen out of [place] as his primary care provider. 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 she does have a past medical history of bladder cancer and had received chemoradiation out of [facility] 2 years ago. Patient also states he has chronic back pain otherwise negative medical history. in the ER patient underwent venous Doppler which was negative for DVT and alsounderwent abdomen and pelvis CT which showed mild subcutaneous strandy attenuation within the upper right thigh that could be related to cellulitis, correlate clinically with a urinary bladder distention and some gallstones.vascular surgery Dr. Gomez along with orthopedics Dr. Up consulted and pending. Will add L-spine x-ray for his back pain. patient denies any chest pain, shortness of breath, or palpitations. Patient denies any nausea or vomiting or recent sick contacts and has been tolerating diet. urinalysis in the ER was negative and COVID-19 was negative as well. Review of Systems Constitutional: Denies chills, Denies fever Ears, nose, mouth and throat: Denies headache, Denies sore throat Cardiovascular: Denies chest pain, Denies shortness of breath Respiratory: Denies cough Gastrointestinal: Denies abdominal pain, Denies diarrhea, Denies nausea, Denies vomiting Musculoskeletal: Reports leg numbness/tingling Musculoskeletal: right: hip pain, hip stiffness Integumentary: Denies pruritus, Denies rash Neurological: Reports weakness Psychiatric: Denies anxiety, Denies depression Endocrine: Denies fatigue, Denies weight change Past Medical History Past Medical History: Cancer, Hearing Disorder / Deafness Additional Past Medical History / Comment(s): Current bladder cancer. Chronic back pain. Tinnitus/hard of hearing left ear. History of Any Multi-Drug Resistant Organisms: None Reported Past Surgical History: No Surgical Hx Reported Additional Past Surgical History / Comment(s): Colonsocopy Past Anesthesia/Blood Transfusion Reactions: No Reported Reaction Past Psychological History: No Psychological Hx Reported Smoking Status: Never smoker Past Alcohol Use History: Occasional Past Drug Use History: Marijuana - Past Family History Father Family Medical History: Cancer Additional Family Medical History / Comment(s): Colorectal cancer. Medications and Allergies Home Medications Medication Instructions Recorded Confirmed Type Ascorbic Acid [Vitamin C] 1,000 mg PO AC-LUNCH 08/09/18 01/19/21 History Glucosamine Sulfate 500 mg PO AC-LUNCH 08/09/18 01/19/21 History Ferrous Sulfate [Feosol] 325 mg PO AC-LUNCH 01/19/21 01/19/21 History Ibuprofen [Motrin Ib] 400 mg PO Q8H 01/19/21 01/19/21 History Allergies Allergy/AdvReac Type Severity Reaction Status Date / Time No Known Allergies Allergy Verified 01/19/21 09:00 Physical Exam Vitals: Vital Signs Temp Pulse Resp BP Pulse Ox 01/19/21 12:00 18 01/19/21 11:00 18 01/19/21 10:00 18 01/19/21 09:28 18 01/19/21 08:26 98.8 F 61 20 131/84 97 Intake and Output 01/18/21 01/19/21 01/19/21 22:59 06:59 14:59 Other: Weight 79.379 kg Gen: This is a 65-year-old male awake, alert and oriented 3, well-developed, well-nourished. HEENT: Head is atraumatic, normocephalic. Pupils equal, round. Sclerae is anicteric. NECK: Supple. No JVD. No lymphadenopathy. No thyromegaly. LUNGS: Clear to auscultation. No wheezes or rhonchi. No intercostal retractions. HEART: Regular rate and rhythm. No murmur. ABDOMEN: Soft. Bowel sounds are present. No masses. No tenderness. EXTREMITIES: No pedal edema. No calf tenderness.right lower extremity significant swelling compared to left and skin is dry and intact with no lesions or open wounds noted with positive pulses bilateral lower extremities NEUROLOGICAL: Patient is awake, alert and oriented x3. Cranial nerves 2 through 12 are grossly intact. Results CBC & Chem 7: 01/19/21 09:56 01/19/21 09:56 Labs: Abnormal Lab Results - Last 24 Hours (Table) 01/19/21 Range/Units 09:56 Chloride 109 H (98-107) mmol/L Glucose 110 H (74-99) mg/dL Thrombosis Risk Factor Assmnt - DVT/VTE Prophylaxis DVT/VTE Prophylaxis: Pharmacologic Prophylaxis ordered Assessment and Plan Assessment: right leg pain and swelling possibly secondary to complex regional pain syndrome Chronic back pain History of bladder cancer history of tinnitus and hard of hearing in the left ear He has medical marijuana card and uses a few times per week GI prophylaxis: Pepcid DVT prophylaxis: Subcutaneous heparin plan: We'll continue with current medications and have added gabapentin, Toradol, and ER ordered [place] and will limit use of narcotics and continue with nerve pain medications. Orthopedics consulted with no plans for surgical intervention at this time. Vascular surgery also evaluated the patient. will order further x- rays of LS-spine and hip and await report. appreciate vascular and orthopedic surgery recommendations and input. labs within normal limits and will continue to monitor closely. Instructed the patient to elevate lower extremities while at rest and increase activity as tolerated. patient is continued on IV antibiotics in the form of vancomycin and will continue for now while awaiting surgical input. patient is afebrile and white blood count is 5.1.
[2021-01-19] MEDS: GABAPENTIN 100 MG CAP PO SCH ×2 (17:38→21:37)
[2021-01-19] MEDS: HEPARIN SODIUM,PORCINE/PF 5,000 UNIT/0.5 ML SYRINGE SQ SCH (21:37)
[2021-01-19] MEDS: FAMOTIDINE 20 MG TAB PO SCH (21:37)
[2021-01-19] MEDS: VANCOMYCIN 1,500 MG in SODIUM CHLORIDE 0.9% 250 ML IVPB SCH (21:38)
[2021-01-20] MEDS: VANCOMYCIN 1,500 MG in SODIUM CHLORIDE 0.9% 250 ML IVPB SCH (05:50)
[2021-01-20 08:20] VITALS: BP 104/74; PULSE 66; RESP 16; TEMP 98.6
[2021-01-20] MEDS: FAMOTIDINE 20 MG TAB PO SCH (08:50)
[2021-01-20] MEDS: HEPARIN SODIUM,PORCINE/PF 5,000 UNIT/0.5 ML SYRINGE SQ SCH (08:50)
[2021-01-20] MEDS: GABAPENTIN 100 MG CAP PO SCH (08:50)
--- NOTE | 2021-01-20 10:43 | P.PN ---
Subjective Progress Note Date: 01/20/21 Principal diagnosis: Low back pain, right hip pain Patient is evaluated today, he is in the emergency room as a hold, they're waiting for her hospital bed placement. Patient states that the symptoms seem to have improved overnight with regards to the discomfort in the low back and hip region. He still does note swelling of the right lower extremity. He notes no bowel or bladder issues at this time, he is urinating with no difficulty. Patient denies any numbness or tingling involving the genital or perineal region. Patient denies any headaches, lightheadedness, chest pain or shortness of breath this time. Objective - Vital Signs Vital signs: Vital Signs Temp 98.6 F 01/20/21 08:00 Pulse 66 01/20/21 08:00 Resp 16 01/20/21 08:00 BP 104/74 01/20/21 08:00 Pulse Ox 96 01/20/21 08:00 Intake & Output 01/19/21 01/20/21 01/20/21 18:59 06:59 18:59 Output Total 400 Balance -400 Weight 79.379 kg Output: Urine 400 - Exam Gen: AOx3, NAD VSS stable at this time Integument: No open lesions or sores are visualized throughout bilateral lower extremities, cervical, thoracic, lumbar spine There is notable soft tissue swelling in the right lower extremity when compared to the left lower extremity. Palpation: No tenderness with palpation to the cervical or thoracic spine, this in the midline and paraspinal region Mild tenderness with palpation to the lumbar spine mainly in the paraspinal regions on the right side ROM: Full range of motion in all major muscle groups in the bilateral upper extremities and lower extremities Notable groin pain with hip flexion along with internal and external rotation of the right lower extremity Sensory Exam: Senory exam to light touch is intact C5-T1 Senosry exam to light touch is intact L2-S1 Motor: 55 strength is appreciated in the bilateral upper extremities with shoulder abduction, forward elevation, elbow flexion, elbow extension and wrist extension, wrist flexion, residency coordinator strength 5-5 strength is noted bilaterally with hip flexion, knee extension, knee flexion, plantar flexion, dorsiflexion, EHL, FHL Reflexes: 2/4 in all UE and LE Negative Hoffmans, babinski and clonus bilaterally Special Test: Logroll maneuver reproduces no significant groin pain bilaterally Straight leg raise does reproduce symptoms on the right hand side, negative on the left - Labs CBC & Chem 7: 01/19/21 09:56 01/19/21 09:56 Assessment and Plan Assessment: Low back pain with lumbar radicular symptoms Spondylosis L3-L4 Retrolisthesis L4-L5 Spondylolytic lysis with listhesis L5-S1 Right hip pain Mild right hip osteoarthritis Right lower extremity swelling History of bladder cancer Plan: I was able to review the images of the lumbar spine with my orthopedic spine surgeon Dr. Mcmahon. No emergent orthopedic spine surgery recommended at this time. Patient was started on gabapentin 200 mg 3 times a day as of yesterday and has noted improvement. Would recommend continuation of this medication along with the oral anti-inflammatory medication. Patient does have mild hip osteoarthritis findings on exam, his symptoms seem to be more originating from the low back this time. Recommending follow-up with Dr. Mcmahon in the outpatient setting for further evaluation and possible imaging studies along with discussion of treatment. Information will be provided in the chart. Recommend weight-bear as tolerated Other medical specialty recommendations Further recommendations to follow Discharge planning: On an orthopedic standpoint the patient remains stable for discharge with follow-up in the outpatient setting. Please contact orthopedics service with any further questions. Time with Patient: Less than 30
--- NOTE | 2021-01-20 12:25 | P.PN ---
Subjective Progress Note Date: 01/20/21 Patient is seen and examined without any acute changes through the night. States he still having right leg pain which originates in his hip and radiates down. Still has swelling to the right lower extremity. Orthopedics has seen patient and there is no plan for any surgical intervention, patient to follow-up with them outpatient. He underwent x-ray of the lumbar spine showing spondylolisthesis L5, spinal listhesis, degenerative disc disease, facet arthropathy the and spinal curvature. Patient also had a hip x-ray that showed mild osteoarthritic changes. He has been afebrile. Objective - Vital Signs Vital signs: Vital Signs Temp 98 F 01/19/21 15:00 Pulse 83 01/20/21 06:00 Resp 18 01/20/21 06:00 BP 102/68 01/20/21 06:00 Pulse Ox 94 L 01/20/21 06:00 Intake & Output 01/19/21 01/20/21 01/20/21 18:59 06:59 18:59 Weight 79.379 kg - Exam General appearance: The patient is alert, oriented, appears in no acute distress. HET: Head is normocephalic and atraumatic. Abdomen: Soft, nontender, nondistended. Extremities: Normal skin color and turgor. Right lower extremity with edema up to thigh, tender to palpation. Palpable bilateral femoral and dorsalis pedis pulses. Neurological: No focal deficits. Strength and sensation are grossly intact. - Labs CBC & Chem 7: 01/19/21 09:56 01/19/21 09:56 Labs: Abnormal Lab Results - Last 24 Hours (Table) 01/19/21 Range/Units 09:56 Chloride 109 H (98-107) mmol/L Glucose 110 H (74-99) mg/dL Assessment and Plan Assessment: 1. Right lower extremity edema 2. Right lower extremity pain 3. History of bladder cancer status post radiation Plan: 1. Continue current Medical management 2. Consider discontinuing IV antibiotics, no evidence of cellulitis 3. Agree with orthopedic consultation 4. Elevate right lower extremity and apply compression stocking 5. There is no indication for any vascular surgical intervention at this time. Patient to follow-up with vascular surgery for further outpatient workup. Thank you for this consultation, the patient is cleared by vascular surgery for discharge. The impression and plan of care has been dictated as directed. Dr. Krause I performed a history and examination of this patient, discussed the same with the dictator. I agree with the dictator's note ,documented as a scribe. Any additional findings or plans will be noted.
[2021-01-20] MEDS ORDERED: NON FORMULARY DRUG (Glucosamine Sulfate 500 MG Cap) PO SCH (12:30)
[2021-01-20] MEDS ORDERED: FERROUS SULFATE 325 MG TAB PO SCH (12:30)
[2021-01-20] MEDS ORDERED: ASCORBIC ACID 500 MG TAB PO SCH (12:30)
[2021-01-20] MEDS ORDERED: VANCOMYCIN TROUGH DUE 1 EACH MISC MISCELLANE ONE (19:00)
--- NOTE | 2021-01-21 08:43 | P.DS ---
Providers Date of admission: 01/19/21 12:00 Expected date of discharge: 01/20/21 Attending physician: Jamaal Schmitt MD Consults: 01/19/21 12:00 Consult Physician Urgent Consulting Provider: Dmitry Smith Consult Reason/Comments: Right hip pain, right leg swelling Do you want consulting provider notified?: Yes 01/19/21 12:01 Consult Physician Routine Consulting Provider: Josse Gomez Consult Reason/Comments: right leg edema/peripheral vascular disease Do you want consulting provider notified?: Yes Primary care physician: Mj Sanabria Hospital Course: Final Diagnosis right leg pain and swelling possibly secondary to complex regional pain syndrome Chronic back pain History of bladder cancer spondylolisthesis of L5, spinal listhesis and degenerative disc disease with facet arthropathy and spinal curvature history of tinnitus and hard of hearing in the left ear He has medical marijuana card and uses a few times per week GI prophylaxis DVT prophylaxis Full code Discharge disposition Patient is being discharged in a stable condition with guarded prognosis to home. Patient will follow-up with Dr. Mj Sanabria in [place] in the outpatient setting upon discharge. Patient also given resources to follow-up with pain management along with orthopedics and vascular surgery in the outpatient setting. Total time taken is greater than 35 minutes. Hospital course. This is a very pleasant 65-year-old male who presented to the emergency department with right lower extremity swelling and pain that had been progressively getting worse since yesterday. Patient states he is normally very active and walks and swims a few times a week and had been working in his garden and noticed it was more difficult and painful on that right lower extremity with walking back and forth in the garden. Patient continues with Motrin as needed for pain and does have chronic back pain that he states has been ongoing for months and is usually relieved with Motrin. patient is having some right hip and L-spine discomfort that radiates to the lower extremity. patient follows with Dr. Mj Jansen out of [place] as his primary care provider. patient denies following with painter mirror in the outpatient setting. she does have a past medical history of bladder cancer and had received chemoradiation out of [facility] 2 years ago. Patient also states he has chronic back pain otherwise negative medical history. in the ER patient underwent venous Doppler which was negative for DVT and alsounderwent abdomen and pelvis CT which showed mild subcutaneous strandy attenuation within the upper right thigh that could be related to cellulitis, correlate clinically with a urinary bladder distention and some gallstones.vascular surgery Dr. Gomez along with orthopedics Dr. Up consulted and pending. Will add L-spine x-ray for his back pain. patient denies any chest pain, shortness of breath, or palpitations. Patient denies any nausea or vomiting or recent sick contacts and has been tolerating diet. urinalysis in the ER was negative and COVID-19 was negative as well. This is a pleasant 66-year-old male who was recently admitted with significant skin lesions noted in the sacral area that travels down the right buttock and is being closely monitored. Multiple pustular bullous present with suspected herpes zoster and patient is maintained on acyclovir. Patient was also started on outpatient oral antibiotics and failed outpatient therapy and is maintained on IV vancomycin and infectious disease is following closely. Patient is also having some pain and discomfort and will add Neurontin and closely monitor. 01/20/2021 Patient is seen and evaluated this morning continues to have right lower extremity swelling with some mild discomfort and states the gabapentin has been helping. Patient also given Caspian for pain. Patient was seen and evaluated by orthopedics recommending outpatient follow-up and no surgical interventions planned at this time. LS imaging shows spondylolisthesis of L5, spinal listhesis and degenerative disc disease with facet arthropathy and spinal curvature. Patient was also seen and evaluated by vascular surgery and will follow-up outpatient as needed. Patient will be given resources for painter mirror and recommending following up outpatient. Currently no reports of chest pain, shortness of breath, or palpitations. Patient is afebrile. No reports of nausea or vomiting and patient is tolerating diet. Patient will be discharged home today. Gen: This is a 65-year-old male awake, alert and oriented 3, well-developed, well-nourished. HEENT: Head is atraumatic, normocephalic. Pupils equal, round. Sclerae is anicteric. NECK: Supple. No JVD. No lymphadenopathy. No thyromegaly. LUNGS: Clear to auscultation. No intercostal retractions. HEART: Regular rate and rhythm. No murmur. ABDOMEN: Soft. Bowel sounds are present. No masses. No tenderness. EXTREMITIES: No pedal edema. No calf tenderness. NEUROLOGICAL: no focal deficits noted SKIN: Right lower extremity swelling but no open lesions or redness noted Please refer to medication reconciliation sheet for a list of medications. Patient Condition at Discharge: Fair Plan - Discharge Summary New Discharge Prescriptions: New Ibuprofen [Motrin] 800 mg PO Q8H #30 tab Acetaminophen Tab [Tylenol] 650 mg PO Q6HR PRN tab PRN Reason: Mild Pain Or Fever > 100.5 Gabapentin [Neurontin] 200 mg PO TID #20 cap Famotidine [Pepcid] 20 mg PO BID 30 Days #60 tab HYDROcodone/APAP 5-325MG [Caspian 5-325] 1 tab PO Q6HR PRN #22 tab PRN Reason: Pain Continue Ascorbic Acid [Vitamin C] 1,000 mg PO AC-LUNCH Glucosamine Sulfate 500 mg PO AC-LUNCH Ferrous Sulfate [Iron (65 MG Elemental)] 325 mg PO AC-LUNCH Discontinued Ibuprofen [Motrin Ib] 400 mg PO Q8H Discharge Medication List Ascorbic Acid [Vitamin C] 1,000 mg PO AC-LUNCH 08/09/18 [History] Glucosamine Sulfate 500 mg PO AC-LUNCH 08/09/18 [History] Ferrous Sulfate [Iron (65 MG Elemental)] 325 mg PO AC-LUNCH 01/19/21 [History] Acetaminophen Tab [Tylenol] 650 mg PO Q6HR PRN tab 01/20/21 [Rx] Famotidine [Pepcid] 20 mg PO BID 30 Days #60 tab 01/20/21 [Rx] Gabapentin [Neurontin] 200 mg PO TID #20 cap 01/20/21 [Rx] HYDROcodone/APAP 5-325MG [Caspian 5-325] 1 tab PO Q6HR PRN #22 tab 01/20/21 [Rx] Ibuprofen [Motrin] 800 mg PO Q8H #30 tab 01/20/21 [Rx] Follow up Appointment(s)/Referral(s): Mj Sanabria MD [Primary Care Provider] - 1-2 Days Noreen Krause DO [STAFF PHYSICIAN] - 1 Week Inés Sigala MD [STAFF PHYSICIAN] - 1 Week Heri Mcmahon DO [Doctor of Osteopathic Medicine] - 2 Weeks Patient Instructions/Handouts: Cellulitis (DC), Leg Edema (ED), Hip Pain (GEN) Activity/Diet/Wound Care/Special Instructions: Please obtain imaging on a disc for the patient for discharge Activity Limited until follow-up Follow-up with primary care provider on discharge Follow-up with orthopedics in 1-2 weeks Resources provided for painter mirror Keep your oncology appointment follow-up with urologist next week Continue taking medications as prescribed Continue with compression stockings of lower extremities and elevating extremities while at rest Discharge Disposition: HOME SELF-CARE
--- NOTE | 2021-01-21 10:39 | CDI ---
Documentation Clarification Form Date: 01/21/2021 10:30:15 AM From: Gregor Gomez Admit Date: 01/19/2021 12:00:00 PM Patient Name: Santiago Clark Visit Number: [id number] Discharge Date: 01/20/2021 01:14:00 PM ATTENTION: The Clinical Documentation Specialists (CDI) and [facility] Coding Staff appreciate your assistance in clarifying documentation. Please respond to the clarification below the line at the bottom and electronically sign. The CDI & [facility] Coding staff will review the response and follow-up if needed. Please note: Queries are made part of the Legal Health Record. If you have any questions, please contact the author of this message via ITS. Dr. Hinton E Sheet The patients principal diagnosis the diagnosis that was chiefly responsible for the admission - has not been clearly identified and clarification is requested. Discharge summary states possible complex regional pain syndrome, type unspecified. The patient presented with the following: R lower extremity and groin pain History/Risk factors: Clinical Indicators: Lab findings: Radiology findings: Lumbar spondylolisthesis Vital Signs: Treatment: Consults: In your professional opinion, can you please clarify which diagnosis, after study, was the reason chiefly responsible for the admission? [ ] complex regional pain syndrome type I [ ] complex regional pain syndrome type II [ ] Other, please specify [ ] Unable to determine [ ] Lumbar spondylolisthesis Unable to determine, not seen the pt MTDD
--- NOTE | 2021-01-26 09:16 | CDI ---
Documentation Clarification Form Date: 01/26/2021 09:07:33 AM From: Gregor Gomez Admit Date: 01/19/2021 12:00:00 PM Patient Name: Santiago Clark Visit Number: [id number] Discharge Date: 01/20/2021 01:14:00 PM ATTENTION: The Clinical Documentation Specialists (CDI) and [facility] Coding Staff appreciate your assistance in clarifying documentation. Please respond to the clarification below the line at the bottom and electronically sign. The CDI & [facility] Coding staff will review the response and follow-up if needed. Please note: Queries are made part of the Legal Health Record. If you have any questions, please contact the author of this message via ITS. Dr. Letitia Yadav The patients principal diagnosis the diagnosis that was chiefly responsible for the admission - has not been clearly identified and clarification is requested. Patient had lumbar spondylosithesis. Discharge summary states possible complex regional pain syndrome. To code this we need the type or wether there is another principle diagnosis. Dr Jamaal Nelson stated he had not seen the patient so could not answer our prior query. The patient presented with the following: back pain History/Risk factors: spondylosisthesis Clinical Indicators: Lab findings: Radiology findings: Vital Signs: Treatment: Consults: In your professional opinion, can you please clarify which diagnosis, after study, was the reason chiefly responsible for the admission? [ ] Complex regional pain syndrome Type I [ x ] Complex regional pain syndrome Type II [ ] Other, please specify [ ] Unable to determine [ ] Lumbar spondylolisthesis MTDD
== END 2021-01-20 13:14 | disposition home or self-care (01) ==
LOC: EC 08:21 → 4SSUR 12:00 → INTOOBSV 12:00 → 4SSUR 21:05 → 5NMEDONC 01-20 11:20 → UNDODISIN 01-20 13:14
PROVIDERS: ADMIT Internal Medicine; ATTEND Internal Medicine
DX: M79.604 Pain in right leg (principal); M79.89 Other specified soft tissue disorders; G89.29 Other chronic pain; M54.5 Low back pain; Z85.51 Personal history of malignant neoplasm of bladder; M43.16 Spondylolisthesis, lumbar region; M51.36 Other intervertebral disc degeneration, lumbar region; M47.816 Spondylosis without myelopathy or radiculopathy, lumbar region; M43.9 Deforming dorsopathy, unspecified; H93.12 Tinnitus, left ear; H91.92 Unspecified hearing loss, left ear; R10.30 Lower abdominal pain, unspecified; M16.11 Unilateral primary osteoarthritis, right hip; L98.9 Disorder of the skin and subcutaneous tissue, unspecified; R60.0 Localized edema; R06.02 Shortness of breath; R07.9 Chest pain, unspecified; R20.0 Anesthesia of skin; R20.2 Paresthesia of skin; K80.20 Calculus of gallbladder without cholecystitis without obstruction; N32.89 Other specified disorders of bladder; Z20.822 Contact with and (suspected) exposure to COVID-19; Z92.21 Personal history of antineoplastic chemotherapy; Z92.3 Personal history of irradiation; Z79.899 Other long term (current) drug therapy; Z79.1 Long term (current) use of non-steroidal anti-inflammatories (NSAID); Z80.0 Family history of malignant neoplasm of digestive organs
CPT/HCPCS: 96376; 96365; 96366 ×2; 96372; 96375; 99285; 36415; 80053; 83605; 85025; 85610; 85730; 81003; 87635; 72100; 73502; 93971; 74177; G0378 ×2; J3370 ×2; J1885 ×2; Q9967; J1644

== ENCOUNTER → 2021-03-05 | Outpatient (CLI) | payer BC ==
--- NOTE | 2021-03-05 10:52 | MR ---
EXAMINATION TYPE: MR lumbar spine wo con DATE OF EXAM: 03/05/2021 COMPARISON: NONE HISTORY: Low back pain TECHNIQUE: T1 and T2 axial and sagittal images of the lumbar spine are submitted. FINDINGS: There is no abnormal signal seen within the visualized spinal cord or paraspinal soft tissu es. Letter wall thickening noted is right asymmetrical thickness of the psoas muscle and right adnexa . There is pathologic adenopathy in the retroperitoneum. There is asymmetric soft tissue fullness of the right iliopsoas region consistent with additional adenopathy. Findings suspicious for malignancy. Report called to referring clinician 10:46 AM 03/05/2021. At L1-2 there is Schmorl's nodes with degenerative disc disease and broad-based disc bulging with mil d effacement of thecal sac. No canal stenosis, discrete herniation or foraminal encroachment. At L2-3 there is hypertrophic change of the facets. Mild degenerative disc disease but no canal steno sis, disc herniation or foraminal encroachment. At L3-4 there is diffuse disc bulging with hypertrophic change of the facets and ligamentum flavum. T here is mild effacement of thecal sac with borderline central stenosis and mild bilateral foraminal e ncroachment At L4-5 there is degenerative disc disease with broad-based disc bulging. Hypertrophic change of the facets and ligamentum flavum result in borderline to mild central stenosis and moderate bilateral for aminal encroachment. At L5-S1 there is bilateral spondylolysis of L5 with grade 1 anterolisthesis. There is moderate left foraminal encroachment and mild right foraminal encroachment. There is severe degenerative disc disea se with complete loss of disc space and signal. No disc herniation or canal stenosis. IMPRESSION: 1. There is pathologic adenopathy in the right iliac chain with thickening of the pelvic sidewall. Th ere appears to be pathologic periaortic lymphadenopathy in the retroperitoneum. Correlate for history of malignancy. There could be some compression of the right iliac vein which could be evaluated with ultrasound as clinically warranted. 2. Multilevel degenerative disc disease with severe changes L5-S1 with bilateral spondylolysis and bi lateral foraminal encroachment as discussed above 3. multilevel disc bulging and hypertrophic change of the facets results in borderline to mild centra l stenosis L4-L5 with bilateral foraminal encroachment. 4. Heterogeneous marrow signal is nonspecific, recommend bone scan. 5. Correlate for mild cystitis.
== END | disposition home or self-care (01) ==
LOC: RADMRIMAIN 09:28
PROVIDERS: ATTEND Orthopaedic Surgery
DX: M48.061 Spinal stenosis, lumbar region without neurogenic claudication (principal); M51.37 Other intervertebral disc degeneration, lumbosacral region; M43.07 Spondylolysis, lumbosacral region
CPT/HCPCS: 72148

== ENCOUNTER → 2021-03-19 | Outpatient (CLI) | payer BC ==
--- NOTE | 2021-03-20 23:15 | PE ---
EXAMINATION TYPE: PET CT fusion skull to thigh DATE OF EXAM: 03/19/2021 COMPARISON: CT abdomen and pelvis January 19, 2021 HISTORY: Bladder cancer diagnosed 2019 completed treatment at that time. TECHNIQUE: Following the intravenous administration of 13.02 mCi of F-18 FDG, whole body images are performed from the skull base to the midthigh. Images are reviewed on the computer in the coronal, a xial, and sagittal planes. Reconstructed rotating images are created on independent workstation and reviewed on the computer. A localization and attenuation correction CT is performed in conjunction with the PET scan. Blood glucose level equals 89. SCAN: Initial Scan FINDINGS: SKULL BASE AND NECK: No areas of abnormal hypermetabolic uptake. CHEST, MEDIASTINUM, AND HILAR REGION: No areas of abnormal hypermetabolic uptake. ABDOMEN AND PELVIS: Abnormal adenopathy right pelvis, the max SUV 17.66 axial image 215. This measure s roughly 5.0 x 3.1 cm extending superiorly. They are difficult to accurately measure as they blend w ith adjacent muscle. Abnormal hypermetabolic lymph node anterior to the iliac chain vessels measures 2.6 x 2.4 cm axial image 212. There are additional abnormal hypermetabolic and enlarged retroperitone al lymph nodes. Left common iliac chain lymph node axial image 189 measures 2.8 x 2.4 cm max SUV 18.47. Left periaort ic lymph node axial image 174 Max SUV 15.91 measures 2.8 x 2.4 cm. OSSEOUS STRUCTURES: No abnormal hypermetabolic uptake. OTHER CT: Mild calcified plaque bilateral carotid bulb level. There is 6 mm calcified nodule or granuloma right lower lobe axial image 102. There are calcified rig ht hilar lymph nodes. Calcifications throughout the spleen. 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 Tiny dependent calcified gallstones in gallbladder. Mild/moderate right-sided hydronephrosis. Bladder poorly distended with moderate concentric wall thic kening. Mild fat stranding with irregularity of the bladder wall, correlate clinically for underlying infection. Asymmetric enlarged visualized right lower extremity versus the opposite left side with mild subcutan eous edema, suspect venous stasis or thrombosis from mass effect from right pelvic adenopathy, correl ate clinically. IMPRESSION: Recurrent bladder neoplasm strongly suspected as there is abnormal abdominal retroperiton eal and bilateral pelvic adenopathy. Local mass effect likely causing [id number] right-sided hy dronephrosis is now present. Local mass effect likely causing venous stasis or thrombosis at the pelv ic level is felt present. Correlate clinically.
== END | disposition home or self-care (01) ==
LOC: RADPETMAIN 14:09
PROVIDERS: ATTEND Internal Medicine Hematology & Oncology
DX: C67.2 Malignant neoplasm of lateral wall of bladder (principal)
CPT/HCPCS: 78815; A9552

== ENCOUNTER 2021-03-20 19:47 | Inpatient (IN) | payer BC ==
--- NOTE | 2021-03-20 23:06 | ED ---
Chest Pain HPI - General Chief Complaint: Chest Pain Stated Complaint: Chest pain Time Seen by Provider: 03/20/21 21:55 Source: patient, RN notes reviewed, old records reviewed Mode of arrival: ambulatory Limitations: no limitations - History of Present Illness Initial Comments: This is a 66-year-old male to the emergency today. Patient Dese for evaluation of severe right leg pain with history of DVT increased swelling groin swelling and groin abdominal pain. Patient does have history of bladder cancer. Recent diagnosis of DVT of the right lower Shorty. Patient is on Chinmay Taser also. No chest pain or shortness of breath. Patient is emotional regarding possible concern of bladder cancer MD Complaint: chest pain, other (Right leg pain right groin pain) -: week(s) Onset: during rest, during exertion Pain Radiation: LUE Severity: severe Severity scale (1-10): 10 Quality: tightness, aching, heaviness Consistency: constant Improves With: nothing Worsens With: palpation, movement Context: recent illness, recent travel, new medications Anginal Symptoms: other (none) Other Symptoms: palpitations - Related Data Home Medications Medication Instructions Recorded Confirmed Ascorbic Acid [Vitamin C] 1,000 mg PO AC-LUNCH 08/09/18 01/19/21 Glucosamine Sulfate 500 mg PO AC-LUNCH 08/09/18 01/19/21 Ferrous Sulfate [Iron (65 MG 325 mg PO AC-LUNCH 01/19/21 01/19/21 Elemental)] Previous Rx's Medication Instructions Recorded Acetaminophen Tab [Tylenol] 650 mg PO Q6HR PRN tab 01/20/21 Famotidine [Pepcid] 20 mg PO BID 30 Days #60 tab 01/20/21 Gabapentin [Neurontin] 200 mg PO TID #20 cap 01/20/21 HYDROcodone/APAP 5-325MG [[place] 1 tab PO Q6HR PRN #22 tab 01/20/21 5-325] Ibuprofen [Motrin] 800 mg PO Q8H #30 tab 01/20/21 Allergies Allergy/AdvReac Type Severity Reaction Status Date / Time No Known Allergies Allergy Verified 03/20/21 20:31 Review of Systems ROS Statement: Those systems with pertinent positive or pertinent negative responses have been documented in the HPI. ROS Other: All systems not noted in ROS Statement are negative. EKG Findings - EKG Comments: EKG Findings:: EKG shows nsr 90 CA 154 QRS 82 QTc 418 Past Medical History Past Medical History: Cancer, Hearing Disorder / Deafness Additional Past Medical History / Comment(s): Current bladder cancer. Chronic back pain. Tinnitus/hard of hearing left ear. History of Any Multi-Drug Resistant Organisms: None Reported Past Surgical History: No Surgical Hx Reported Additional Past Surgical History / Comment(s): Colonoscopy Past Anesthesia/Blood Transfusion Reactions: No Reported Reaction Past Psychological History: No Psychological Hx Reported Smoking Status: Former smoker Past Alcohol Use History: Occasional Past Drug Use History: Marijuana - Past Family History Father Family Medical History: Cancer Additional Family Medical History / Comment(s): Colorectal cancer. General Exam Limitations: no limitations General appearance: alert, in no apparent distress Head exam: Present: atraumatic, normocephalic, normal inspection Eye exam: Present: normal appearance, PERRL, EOMI. Absent: scleral icterus, conjunctival injection, periorbital swelling ENT exam: Present: normal exam, mucous membranes moist Neck exam: Present: normal inspection. Absent: tenderness, meningismus, lymphadenopathy Respiratory exam: Present: normal lung sounds bilaterally. Absent: respiratory distress, wheezes, rales, rhonchi, stridor Cardiovascular Exam: Present: regular rate, normal rhythm, normal heart sounds. Absent: systolic murmur, diastolic murmur, rubs, gallop, clicks GI/Abdominal exam: Present: soft, normal bowel sounds. Absent: distended, tenderness, guarding, rebound, rigid Extremities exam: Present: normal inspection, full ROM, normal capillary refill. Absent: tenderness, pedal edema, joint swelling, calf tenderness Back exam: Present: normal inspection Neurological exam: Present: alert, oriented X3, CN II-XII intact Psychiatric exam: Present: normal affect, normal mood Skin exam: Present: warm, dry, intact, normal color. Absent: rash Course Vital Signs 03/20/21 03/21/21 20:28 00:58 Temperature 98.1 F Pulse Rate 93 72 Respiratory 18 18 Rate Blood Pressure 157/94 134/88 O2 Sat by Pulse 98 96 Oximetry - Reevaluation(s) Reevaluation #1: 03/21/21 04:51 Medical record is reviewed Reevaluation #2: 03/21/21 04:51 Patient informed of results and questions answered Reevaluation #3: 03/21/21 04:52 Patient has no change in symptoms may be improved pain control - Consultations Consultation #1: Spoke with Dr. Garcia will see the patient is morning Chest Pain MDM - MDM 66 male DF for evaluation of significant right lower Shorty pain and swelling. Patient seen by vascular for DVT. Patient be admitted for possible recurrence of bladder cancer Disposition Clinical Impression: Neoplasm of unspecified behavior of bladder, Right leg swelling, Right leg DVT Disposition: ADMITTED IP TO THIS HOSP Condition: Serious Is patient prescribed a controlled substance at d/c from ED?: No
[2021-03-20 23:12] LABS: Basophils % (A) 0 %; Eosinophils # (A) 0.1 k/uL (0-0.7); Eosinophils % (A) 2 %; HCT 38.2 % (39.0-53.0); HGB 13.3 gm/dL (13.0-17.5); Lymphocytes % (A) 16 %; MCH 32.6 pg (25.0-35.0); MCHC 34.9 g/dL (31.0-37.0); MCV 93.4 fL (80.0-100.0); Mean Platelet Volume 7.5; Monocytes # (A) 0.7 k/uL (0-1.0); Monocytes % (A) 10 %; Neutrophils # (A) 4.6 k/uL (1.3-7.7); Neutrophils % (A) 70 %; Platelet Count 265 k/uL (150-450); RBC 4.09 m/uL (4.30-5.90); RDW 13.6 % (11.5-15.5); WBC 6.5 k/uL (3.8-10.6)
[2021-03-20] MEDS ORDERED: HYDROmorphone 1 MG/ML 1 ML SYRINGE IVP STA (23:19)
[2021-03-20 23:30] LABS: Partial Thromboplastin Time 27.9 sec (22.0-30.0); Prothrombin Time 10.9 sec (9.0-12.0)
[2021-03-20 23:43] LABS: Calcium 9.8 mg/dL (8.4-10.2); Magnesium 2.2 mg/dL (1.6-2.3); Potassium 4.4 mmol/L (3.5-5.1); Total Bilirubin 0.5 mg/dL (0.2-1.3); Total Protein 7.2 g/dL (6.3-8.2); Uric Acid 4.6 mg/dL (3.5-8.5)
[2021-03-21] MEDS ORDERED: ONDANSETRON 4 MG/2 ML VIAL IVP PRN (00:19)
[2021-03-21] MEDS ORDERED: NALOXONE 0.4 MG/ML 1 ML VIAL IV PRN (00:19)
[2021-03-21] MEDS ORDERED: ACETAMINOPHEN TAB 325 MG TAB PO PRN (00:19)
[2021-03-21] MEDS ORDERED: HEPARIN SODIUM 1,000 UN/ML (10ML VL) IV ONE (00:20)
[2021-03-21] MEDS ORDERED: HEPARIN SODIUM 1,000 UN/ML (10ML VL) IV PRN (00:20)
[2021-03-21] MEDS: HEPARIN SOD,PORK IN 0.45% NACL 25,000 UNIT in 0.45% NACL 1 250ML.BAG IV SCH ×2 (00:59→16:30)
[2021-03-21] MEDS: SODIUM CHLORIDE 0.9% 1,000 ML IV SCH (00:59)
[2021-03-21] MEDS ORDERED: HYDROcodone/APAP 5-325MG 1 EACH TAB PO PRN (02:30)
[2021-03-21] MEDS: HYDROmorphone 1 MG/ML 1 ML SYRINGE IVP PRN ×6 (03:20→22:59)
--- NOTE | 2021-03-21 03:57 | P.HPIM ---
History of Present Illness H&P Date: 03/21/21 Chief Complaint: worsening right leg swelling and pain 66-year-old male diagnosed with bladder cancer around 2.5 years ago treated with MRI guided radiation chemotherapy he's been in remission for the past 2 years. However over the past 2 months he started noticing leg swelling which has been progressively getting worse. He had followed up with Dr. valdovinos 2 weeks ago and ran some tests including PET scans and venous duplex ultrasound of the right lower extremity where he was diagnosed with DVT and was started on Eliquis. He woke up yesterday no tests worsening swelling and pain of his right lower extremity and when he started looking at his genitalia he noticed no swelling around the shaft of his penis for which she grew concerned and started experiencing some chest discomfort decided to call EMS to come to the hospital for evaluation he's been compliant with his medications he denies any penile discharge or drainage denies any trauma denies any nausea vomiting or changes in his bowel habit he denies any hematuria or changes in his urinary habits He was told that there was a possibility that his tumor has came back Otherwise he denies any fevers or chills he denies any upper respiratory infection symptoms he is vaccinated against Covid with Materna In the ED d-dimer was negative EKG normal sinus rhythm his labs overall unremarkable Review of Systems Pertinent positives as noted in HPI. All other systems were reviewed and are negative Past Medical History Past Medical History: Cancer, Hearing Disorder / Deafness Additional Past Medical History / Comment(s): Current bladder cancer. Chronic back pain. Tinnitus/hard of hearing left ear. History of Any Multi-Drug Resistant Organisms: None Reported Past Surgical History: No Surgical Hx Reported Additional Past Surgical History / Comment(s): Colonoscopy Past Anesthesia/Blood Transfusion Reactions: No Reported Reaction Past Psychological History: No Psychological Hx Reported Smoking Status: Former smoker Past Alcohol Use History: Occasional Past Drug Use History: Marijuana - Past Family History Father Family Medical History: Cancer Additional Family Medical History / Comment(s): Colorectal cancer. Medications and Allergies Home Medications Medication Instructions Recorded Confirmed Type Ascorbic Acid [Vitamin C] 1,000 mg PO AC-LUNCH 08/09/18 01/19/21 History Glucosamine Sulfate 500 mg PO AC-LUNCH 08/09/18 01/19/21 History Ferrous Sulfate [Iron (65 MG 325 mg PO AC-LUNCH 01/19/21 01/19/21 History Elemental)] Acetaminophen Tab [Tylenol] 650 mg PO Q6HR PRN tab 01/20/21 Rx Famotidine [Pepcid] 20 mg PO BID 30 Days #60 tab 01/20/21 Rx Gabapentin [Neurontin] 200 mg PO TID #20 cap 01/20/21 Rx HYDROcodone/APAP 5-325MG [[place] 1 tab PO Q6HR PRN #22 tab 01/20/21 Rx 5-325] Ibuprofen [Motrin] 800 mg PO Q8H #30 tab 01/20/21 Rx Allergies Allergy/AdvReac Type Severity Reaction Status Date / Time No Known Allergies Allergy Verified 03/20/21 20:31 Physical Exam Vitals: Vital Signs Temp Pulse Resp BP Pulse Ox 03/21/21 00:58 72 18 134/88 96 03/20/21 20:28 98.1 F 93 18 157/94 98 Intake and Output 03/20/21 03/20/21 03/21/21 14:59 22:59 06:59 Other: Weight 85.729 kg Constitutional: No acute distress, conversant, pleasant Eyes: Anicteric sclerae, moist conjunctiva, Pupils equal round reactive to light ENMT: NC/AT Oropharynx clear, no erythema, or exudates Neck: Supple, FROM, no masses, or JVD No carotid bruits No thyromegaly Lungs: Clear to auscultation Clear to percussion Normal respiratory effort, no accessory muscle use Cardiovascular: Heart regular in rate and rhythm, No murmurs, gallops, or rubs Unilateral pitting edema of the right lower extremity Abdominal: Soft Diffuse mild tenderness to palpation of the abdomen onto regarding, no rebound or rigidity Abdomen moving with respiration Normoactive bowel sounds No hepatomegaly, No splenomegaly No palpable mass No abdominal wall hernia noted Edema of the shaft of the penis Skin: Right lower extremity skin feels tense with swelling of the whole right lower extremity. Normal temperature, tone, texture, turgor No induration No subcutaneous nodules No rash, lesions No ulcers Extremities: No digital cyanosis No clubbing Pedal pulses intact and symmetrical Radial pulses intact and symmetrical No calf tenderness Psychiatric: Alert and oriented to person, place and time Appropriate affect fair judgement Neuro Muscles Strength 5/5 in bilateral upper extremities and left lower extremity its limited over his right lower extremity due to significant swelling and pain Sensation to light touch grossly present throughout Cranial nerves II-XII grossly intact Lymphatics: no palpable cervical or supraclavicular , or inguinal lymph nodes Results CBC & Chem 7: 03/20/21 22:54 03/20/21 22:54 Labs: Abnormal Lab Results - Last 24 Hours (Table) 03/20/21 03/20/21 Range/Units 22:54 22:54 RBC 4.09 L (4.30-5.90) m/uL Hct 38.2 L (39.0-53.0) % BUN 27 H (9-20) mg/dL Glucose 106 H (74-99) mg/dL Assessment and Plan Assessment: Right lower extremity DVT with worsening swelling most likely secondary to compromise of venous drainage due to pelvic mass History of bladder cancer possible recurrence Discontinue Eliquis patient started on heparin drip Patient encouraged to sleep on his left side in an attempt to help relief p ressure from the right common femoral vein and right inferior vena cava Neurovascular assessment of the right lower extremity every shift Pain control Monitor vital signs Urology consultation Vascular consultation Patient is full code DVT prophylaxis on heparin drip for recent diagnosis of DVT Anticipated length of stay more than 2 midnights
[2021-03-21] MEDS ORDERED: GABAPENTIN 100 MG CAP PO SCH (09:00)
--- NOTE | 2021-03-21 12:17 | P.GSCN ---
History of Present Illness Consult date: 03/21/21 Reason for Consult: Bladder Cancer Requesting physician: Allison Wilson History of present illness: The patient is a 66-year-old white male diagnosed with bladder cancer in 2018. He underwent transurethral resection of a right lateral bladder wall tumor, revealing high-grade muscle invasive urothelial carcinoma. He was referred to Dr. Phillip Leone at [facility] in [place], who recommended neoadjuvant chemotherapy followed by a radical cystoprostatectomy. The patient was ultimately treated with chemoradiation at a branch of [facility] in [place]. He was clinically well following that. He underwent cystoscopy by one of their urologists approximately 2-3 months ago, showing no abnormalities. However, he developed swelling of the right lower extremity in December 2020 and was diagnosed with a DVT. A recent PET/CT scan shows retroperitoneal and bilateral pelvic lymphadenopathy, consistent with metastatic urothelial carcinoma. He has an appointment to see the local oncology group on 03/23/2021. He was hospitalized yesterday with increased swelling of the right lower extremity as well as swelling of the external genitalia, which has resolved. Review of Systems - Constitutional Reports weight gain, Denies chills, Denies fever - Gastrointestinal Reports abdominal pain - Genitourinary Denies dysuria, Denies hematuria Past Medical History Past Medical History: Cancer, Hearing Disorder / Deafness Additional Past Medical History / Comment(s): Current bladder cancer. Chronic back pain. Tinnitus/hard of hearing left ear. History of Any Multi-Drug Resistant Organisms: None Reported Past Surgical History: No Surgical Hx Reported Additional Past Surgical History / Comment(s): Colonoscopy Past Anesthesia/Blood Transfusion Reactions: No Reported Reaction Past Psychological History: No Psychological Hx Reported Smoking Status: Former smoker Past Alcohol Use History: Occasional Past Drug Use History: Marijuana - Past Family History Father Family Medical History: Cancer Additional Family Medical History / Comment(s): Colorectal cancer. Medications and Allergies Home Medications Medication Instructions Recorded Confirmed Type Ascorbic Acid [Vitamin C] 1,000 mg PO AC-LUNCH 08/09/18 03/21/21 History Glucosamine Sulfate 500 mg PO AC-LUNCH 08/09/18 03/21/21 History Ferrous Sulfate [Iron (65 MG 325 mg PO AC-LUNCH 01/19/21 03/21/21 History Elemental)] Cholecalciferol (Vitamin D3) 125 mcg PO DAILY 03/21/21 03/21/21 History [Vitamin D3 (125 MCG = 5,000 IU)] Gabapentin 300 mg PO TID 03/21/21 03/21/21 History HYDROcodone/APAP 5-325MG [[place] 1 tab PO Q4H PRN 03/21/21 03/21/21 History 5-325] Ibuprofen [Motrin Ib] 600 mg PO Q8H PRN 03/21/21 03/21/21 History Rivaroxaban [Xarelto Starter Pack] See Taper PO DIRECTED 03/21/21 03/21/21 History Turmeric Root Extract [Turmeric] 500 mg PO AC-LUNCH 03/21/21 03/21/21 History Allergies Allergy/AdvReac Type Severity Reaction Status Date / Time No Known Allergies Allergy Verified 03/21/21 09:54 Surgical - Exam Vital Signs Temp Pulse Resp BP Pulse Ox 98.1 F 93 18 157/94 98 03/20/21 20:28 03/20/21 20:28 03/20/21 20:28 03/20/21 20:28 03/20/21 20:28 - General well developed, well nourished, no distress - Neck no masses, trachea midline, no lymphadectomy - Respiratory normal respiratory effort - Abdomen Abdomen: soft, tender (Mild right lower quadrant tenderness to palpation), no masses, no guarding, no rigid, no rebound - Genitourinary normal penis with no external lesions, testicles non-tender - Psychiatric oriented to time, oriented to person, oriented to place, speech is normal, memory intact Results - Labs 03/20/21 22:54 03/20/21 22:54 Abnormal Lab Results - Last 24 Hours (Table) 03/20/21 03/20/21 03/21/21 Range/Units 22:54 22:54 07:00 RBC 4.09 L (4.30-5.90) m/uL Hct 38.2 L (39.0-53.0) % APTT 86.3 H (22.0-30.0) sec BUN 27 H (9-20) mg/dL Glucose 106 H (74-99) mg/dL Diabetes panel 03/20/21 Range/Units 22:54 Sodium 138 (137-145) mmol/L Potassium 4.4 (3.5-5.1) mmol/L Chloride 106 (98-107) mmol/L Carbon Dioxide 24 (22-30) mmol/L BUN 27 H (9-20) mg/dL Creatinine 1.04 (0.66-1.25) mg/dL Glucose 106 H (74-99) mg/dL Calcium 9.8 (8.4-10.2) mg/dL AST 31 (17-59) U/L ALT 28 (4-49) U/L Alkaline Phosphatase 102 (38-126) U/L Total Protein 7.2 (6.3-8.2) g/dL Albumin 4.0 (3.5-5.0) g/dL Calcium panel 03/20/21 Range/Units 22:54 Calcium 9.8 (8.4-10.2) mg/dL Phosphorus 4.0 (2.5-4.5) mg/dL Albumin 4.0 (3.5-5.0) g/dL Pituitary panel 03/20/21 Range/Units 22:54 Sodium 138 (137-145) mmol/L Potassium 4.4 (3.5-5.1) mmol/L Chloride 106 (98-107) mmol/L Carbon Dioxide 24 (22-30) mmol/L BUN 27 H (9-20) mg/dL Creatinine 1.04 (0.66-1.25) mg/dL Glucose 106 H (74-99) mg/dL Calcium 9.8 (8.4-10.2) mg/dL Adrenal panel 03/20/21 Range/Units 22:54 Sodium 138 (137-145) mmol/L Potassium 4.4 (3.5-5.1) mmol/L Chloride 106 (98-107) mmol/L Carbon Dioxide 24 (22-30) mmol/L BUN 27 H (9-20) mg/dL Creatinine 1.04 (0.66-1.25) mg/dL Glucose 106 H (74-99) mg/dL Calcium 9.8 (8.4-10.2) mg/dL Total Bilirubin 0.5 (0.2-1.3) mg/dL AST 31 (17-59) U/L ALT 28 (4-49) U/L Alkaline Phosphatase 102 (38-126) U/L Total Protein 7.2 (6.3-8.2) g/dL Albumin 4.0 (3.5-5.0) g/dL - Imaging CT scan - abdomen: report reviewed, image reviewed Assessment and Plan (1) Malignant neoplasm of lateral wall of bladder Current Visit: Yes Status: Acute Code(s): C67.2 - MALIGNANT NEOPLASM OF LATERAL WALL OF BLADDER SNOMED Code(s): 662284018 Plan: The patient has a DVT of the right lower extremity, which appears to be secondary to venous compression by the retroperitoneal adenopathy. This has also resulted in mild right hydronephrosis. The adenopathy is almost certainly due to metastatic urothelial carcinoma, and it is my expectation that he will be offered systemic chemotherapy. I do not feel that there is any role for urologic surgery at this time. A lymphadenectomy would be potentially complicated and likely of minimal to no benefit. With regards to stent placement, the hydronephrosis is mild, renal function is normal, and the patient has no symptoms which can be attributed to the hydronephrosis. It would thus be my recommendation to proceed with stent insertion only if he becomes symptomatic or the degree of hydronephrosis worsens. Time with Patient: Greater than 30
[2021-03-21] MEDS ORDERED: NON FORMULARY DRUG (Glucosamine Sulfate 500 MG Cap) PO SCH (12:30)
[2021-03-21] MEDS ORDERED: RIVAROXABAN PO SCH (12:30)
[2021-03-21] MEDS ORDERED: NON FORMULARY DRUG (Turmeric Root Extract [Turmeric] 500 MG Capsule) PO SCH (12:30)
[2021-03-21] MEDS: FERROUS SULFATE 325 MG TAB PO SCH (13:06)
[2021-03-21] MEDS: ASCORBIC ACID 500 MG TAB PO SCH (13:06)
[2021-03-21] MEDS: HYDROcodone/APAP 5-325MG 1 EACH TAB PO PRN ×3 (13:08→22:32)
--- NOTE | 2021-03-21 13:20 | P.GSCN ---
History of Present Illness Consult date: 03/21/21 Reason for Consult: Leg edema. History of present illness: Patient is a 66-year-old male with a history of a bladder cancer and pelvic lymphadenopathy with a history of the lymphadenopathy compressing on the right iliac vein causing right iliac vein thrombosis secondary leg edema. The patient has seen Dr. Gomez in the past with the thought of percutaneous thrombectomy and stent placement. He should presented because of creasing leg edema and associated discomfort. Past Medical History Past Medical History: Cancer, Hearing Disorder / Deafness Additional Past Medical History / Comment(s): Current bladder cancer. Chronic back pain. Tinnitus/hard of hearing left ear. History of Any Multi-Drug Resistant Organisms: None Reported Past Surgical History: No Surgical Hx Reported Additional Past Surgical History / Comment(s): Colonoscopy Past Anesthesia/Blood Transfusion Reactions: No Reported Reaction Past Psychological History: No Psychological Hx Reported Smoking Status: Former smoker Past Alcohol Use History: Occasional Past Drug Use History: Marijuana - Past Family History Father Family Medical History: Cancer Additional Family Medical History / Comment(s): Colorectal cancer. Medications and Allergies Home Medications Medication Instructions Recorded Confirmed Type Ascorbic Acid [Vitamin C] 1,000 mg PO AC-LUNCH 08/09/18 03/21/21 History Glucosamine Sulfate 500 mg PO AC-LUNCH 08/09/18 03/21/21 History Ferrous Sulfate [Iron (65 MG 325 mg PO AC-LUNCH 01/19/21 03/21/21 History Elemental)] Cholecalciferol (Vitamin D3) 125 mcg PO DAILY 03/21/21 03/21/21 History [Vitamin D3 (125 MCG = 5,000 IU)] Gabapentin 300 mg PO TID 03/21/21 03/21/21 History HYDROcodone/APAP 5-325MG [[place] 1 tab PO Q4H PRN 03/21/21 03/21/21 History 5-325] Ibuprofen [Motrin Ib] 600 mg PO Q8H PRN 03/21/21 03/21/21 History Rivaroxaban [Xarelto Starter Pack] See Taper PO DIRECTED 03/21/21 03/21/21 History Turmeric Root Extract [Turmeric] 500 mg PO AC-LUNCH 03/21/21 03/21/21 History Allergies Allergy/AdvReac Type Severity Reaction Status Date / Time No Known Allergies Allergy Verified 03/21/21 09:54 Surgical - Exam Osteopathic Statement: *. No significant issues noted on an osteopathic structural exam other than those noted in the History and Physical/Consult. Vital Signs Temp Pulse Resp BP Pulse Ox 98.1 F 93 18 157/94 98 03/20/21 20:28 03/20/21 20:28 03/20/21 20:28 03/20/21 20:28 03/20/21 20:28 Since right leg is swollen from the inguinal ligament down through the foot. Toes are freely movable and nontender. I discussed with the patient current situation and our plans of for percutaneous intervention. Patient is willing to proceed. This of be scheduled to be performed on Monday. Results - Labs 03/20/21 22:54 03/20/21 22:54 Abnormal Lab Results - Last 24 Hours (Table) 03/20/21 03/20/21 03/21/21 Range/Units 22:54 22:54 07:00 RBC 4.09 L (4.30-5.90) m/uL Hct 38.2 L (39.0-53.0) % APTT 86.3 H (22.0-30.0) sec BUN 27 H (9-20) mg/dL Glucose 106 H (74-99) mg/dL Diabetes panel 03/20/21 Range/Units 22:54 Sodium 138 (137-145) mmol/L Potassium 4.4 (3.5-5.1) mmol/L Chloride 106 (98-107) mmol/L Carbon Dioxide 24 (22-30) mmol/L BUN 27 H (9-20) mg/dL Creatinine 1.04 (0.66-1.25) mg/dL Glucose 106 H (74-99) mg/dL Calcium 9.8 (8.4-10.2) mg/dL AST 31 (17-59) U/L ALT 28 (4-49) U/L Alkaline Phosphatase 102 (38-126) U/L Total Protein 7.2 (6.3-8.2) g/dL Albumin 4.0 (3.5-5.0) g/dL Calcium panel 03/20/21 Range/Units 22:54 Calcium 9.8 (8.4-10.2) mg/dL Phosphorus 4.0 (2.5-4.5) mg/dL Albumin 4.0 (3.5-5.0) g/dL Pituitary panel 03/20/21 Range/Units 22:54 Sodium 138 (137-145) mmol/L Potassium 4.4 (3.5-5.1) mmol/L Chloride 106 (98-107) mmol/L Carbon Dioxide 24 (22-30) mmol/L BUN 27 H (9-20) mg/dL Creatinine 1.04 (0.66-1.25) mg/dL Glucose 106 H (74-99) mg/dL Calcium 9.8 (8.4-10.2) mg/dL Adrenal panel 03/20/21 Range/Units 22:54 Sodium 138 (137-145) mmol/L Potassium 4.4 (3.5-5.1) mmol/L Chloride 106 (98-107) mmol/L Carbon Dioxide 24 (22-30) mmol/L BUN 27 H (9-20) mg/dL Creatinine 1.04 (0.66-1.25) mg/dL Glucose 106 H (74-99) mg/dL Calcium 9.8 (8.4-10.2) mg/dL Total Bilirubin 0.5 (0.2-1.3) mg/dL AST 31 (17-59) U/L ALT 28 (4-49) U/L Alkaline Phosphatase 102 (38-126) U/L Total Protein 7.2 (6.3-8.2) g/dL Albumin 4.0 (3.5-5.0) g/dL Assessment and Plan Assessment: #1: Right iliac deep venous thrombosis with secondary leg edema. #2: Compression of the right iliac vein by lymphadenopathy. #3: History of bladder cancer. Plan: Plan is for percutaneous thrombectomy with anticipated stent placement on March 23.
--- NOTE | 2021-03-21 13:46 | P.PN ---
Progress Note - Text Progress Note Date: 03/21/21 I saw and evaluated the patient independently today, and I agree with the documented assessment and plan by my colleague earlier this morning. Patient is scheduled for a thrombectomy and stent for his right lower extremity DVT on March 23. Neurology also evaluated the patient, determined no intervention needed at this time.
[2021-03-21] MEDS: GABAPENTIN 300 MG CAP PO SCH ×2 (15:28→22:32)
[2021-03-22] MEDS: HYDROmorphone 1 MG/ML 1 ML SYRINGE IVP PRN ×5 (02:12→20:55)
[2021-03-22] MEDS: HYDROcodone/APAP 5-325MG 1 EACH TAB PO PRN ×4 (04:04→22:24)
[2021-03-22 05:46] LABS: Basophils % (A) 0 %; Eosinophils # (A) 0.2 k/uL (0-0.7); Eosinophils % (A) 2 %; HCT 38.2 % (39.0-53.0); HGB 13.1 gm/dL (13.0-17.5); Lymphocytes # (A) 1.2 k/uL (1.0-4.8); Lymphocytes % (A) 19 %; MCH 32.8 pg (25.0-35.0); MCHC 34.3 g/dL (31.0-37.0); MCV 95.6 fL (80.0-100.0); Mean Platelet Volume 7.3; Monocytes # (A) 0.5 k/uL (0-1.0); Monocytes % (A) 7 %; Neutrophils # (A) 4.3 k/uL (1.3-7.7); Neutrophils % (A) 69 %; Platelet Count 251 k/uL (150-450); RDW 14.3 % (11.5-15.5); WBC 6.3 k/uL (3.8-10.6)
[2021-03-22 05:59] LABS: Partial Thromboplastin Time 39.7 sec (22.0-30.0)
[2021-03-22] MEDS: GABAPENTIN 300 MG CAP PO SCH ×3 (08:14→20:49)
[2021-03-22] MEDS: CHOLECALCIFEROL 125 MCG (5000 IU) TABLET PO SCH (08:14)
[2021-03-22] MEDS: HEPARIN SOD,PORK IN 0.45% NACL 25,000 UNIT in 0.45% NACL 1 250ML.BAG IV SCH (08:25)
[2021-03-22] MEDS: SODIUM CHLORIDE 0.9% 1,000 ML IV SCH ×2 (09:58→22:24)
[2021-03-22 11:00] LABS: ALT 23 U/L (10-49); AST 21 U/L (14-35); African American GFR (CKD) 81.8 (60.0-200.0); Albumin 3.9 g/dL (3.8-4.9); Albumin/Globulin Ratio 1.63 (1.60-3.17); Alkaline Phosphatase 102 U/L (41-126); BUN/Creat Ratio 17.64 Ratio (12.00-20.00); Bilirubin, Conjugated <0.20 mg/dL (0.20-0.40); Blood Urea Nitrogen 19.4 mg/dL (9.0-27.0); Calcium 9.3 mg/dL (8.7-10.3); Carbon Dioxide 20.9 mmol/L (20.0-27.5); Chloride 103 mmol/L (96-109); Globulin 2.4 g/dL (1.6-3.3); Glucose 107 mg/dL (70-110); LDH 167 U/L (120-246); Magnesium 2.1 mg/dL (1.5-2.4); Non-African American GFR(CKD) 70.6 (60.0-200.0); Potassium 4.2 mmol/L (3.5-5.5); Sodium 137 mmol/L (135-145); Total Protein 6.3 g/dL (6.2-8.2)
--- NOTE | 2021-03-22 11:33 | P.PN ---
Subjective Progress Note Date: 03/22/21 Patient is seen and examined lying in bed. Patient states he still has increased swelling to the right lower extremity however pelvic swelling has improved. He denies any shortness of breath. There still some lower extremity discomfort. He remains on IV heparin drip at this time. He would like consul tation to oncology as he was supposed to see them tomorrow for his initial consultation. Objective - Vital Signs Vital signs: Vital Signs Temp 98.3 F 03/22/21 04:14 Pulse 54 L 03/22/21 04:14 Resp 18 03/22/21 04:14 BP 126/81 03/22/21 04:14 Pulse Ox 94 L 03/22/21 04:14 Intake & Output 03/21/21 03/22/21 03/22/21 18:59 06:59 18:59 Intake Total 224.669 590 218.415 Balance 224.669 590 218.415 Intake: Intake, IV Titration 224.669 240 218.415 Amount Heparin Sod,Pork in 0.45% 224.669 218.415 NaCl 25,000 unit In 0.45 % NaCl 1 250ml.bag @ 18 UNITS/KG/HR 15.431 mls/hr IV .[id number] [facility] Rx#: [id number] Sodium Chloride 0.9% 1, 240 000 ml @ 20 mls/hr IV . Q24H [facility] Rx#:[id number] Oral 350 Other: Voiding Method Toilet Urinal # Voids 4 2 - Exam General appearance: The patient is alert, oriented, in no acute distress. HET: Head is normocephalic and atraumatic. Neck: Supple without lymphadenopathy. Trachea midline. Heart: S1 S2. Regular rate and rhythm. Lungs: Clear to auscultation. Abdomen: Soft, nontender, nondistended. Extremities: Right lower extremity with redness and swelling. Palpable DP pulse. Patient has full range of motion of lower extremity. Neurological: No focal deficits. Strength and sensation are grossly intact. - Labs CBC & Chem 7: 03/22/21 04:47 03/22/21 04:47 Labs: Abnormal Lab Results - Last 24 Hours (Table) 03/21/21 03/22/21 03/22/21 Range/Units 14:23 04:47 04:47 RBC 4.00 L (4.30-5.90) m/uL Hct 38.2 L (39.0-53.0) % APTT 45.7 H 39.7 H (22.0-30.0) sec Assessment and Plan Assessment: 1. Right iliac DVT with secondary leg edema 2. Compression of right iliac vein by lymphadenopathy 3. History of Bladder cancer Plan: 1. Plan for percutaneous thrombectomy with anticipated stent placement tomorrow 2. Nothing by mouth after midnight 3. Discontinue heparin drip 4 hours prior to procedure 4. Agree with oncology consultation, discussed with them recommendations for outpatient anticoagulation as patient is supposed to start chemotherapy The impression and plan of care has been dictated as directed. Dr. Gomez I performed a history and examination of this patient, discussed the same with the dictator. I agree with the dictator's note ,documented as a scribe. Any additional findings or plans will be noted.
--- NOTE | 2021-03-22 11:59 | P.PN ---
Subjective Progress Note Date: 03/22/21 Plans for thrombectomy with stent placement tomorrow. Will be seen by oncology here. No surgical intervention planned by urology. Patient continues to report pain in the leg. Objective - Vital Signs Vital signs: Vital Signs Temp 98.3 F 03/22/21 04:14 Pulse 54 L 03/22/21 04:14 Resp 18 03/22/21 04:14 BP 126/81 03/22/21 04:14 Pulse Ox 94 L 03/22/21 04:14 Intake & Output 03/21/21 03/22/21 03/22/21 18:59 06:59 18:59 Intake Total 224.669 590 218.415 Balance 224.669 590 218.415 Intake: Intake, IV Titration 224.669 240 218.415 Amount Heparin Sod,Pork in 0.45% 224.669 218.415 NaCl 25,000 unit In 0.45 % NaCl 1 250ml.bag @ 18 UNITS/KG/HR 15.431 mls/hr IV .[id number] [facility] Rx#: [id number] Sodium Chloride 0.9% 1, 240 000 ml @ 20 mls/hr IV . Q24H [facility] Rx#:[id number] Oral 350 Other: Voiding Method Toilet Urinal # Voids 4 2 - Exam Gen: awake, alert HEENT: normocephalic, atraumatic, good hearing acuity, moist mucous membranes Resp: good air exchange, breathing comfortably with no accessory muscle use CVS: good distal perfusion x 4, GI: soft, NTTP, ND : no SPT, no CVAT, matta catheter not present MSK: Right lower extremity pitting edema, no clubbing Neuro: non-focal, moving all extremities Psych: cooperative, euthymic mood - Labs CBC & Chem 7: 03/22/21 04:47 03/22/21 04:47 Labs: Abnormal Lab Results - Last 24 Hours (Table) 03/21/21 03/22/21 03/22/21 Range/Units 14:23 04:47 04:47 RBC 4.00 L (4.30-5.90) m/uL Hct 38.2 L (39.0-53.0) % APTT 45.7 H (22.0-30.0) sec Conjugated Bilirubin <0.20 L (0.20-0.40) mg/dL C-Reactive Protein 4.20 H (0.00-0.80) mg/dL 03/22/21 Range/Units 04:47 RBC (4.30-5.90) m/uL Hct (39.0-53.0) % APTT 39.7 H (22.0-30.0) sec Conjugated Bilirubin (0.20-0.40) mg/dL C-Reactive Protein (0.00-0.80) mg/dL Assessment and Plan Assessment: Right lower extremity DVT with worsening swelling most likely secondary to compromise of venous drainage due to pelvic mass History of bladder cancer possible recurrence Discontinue Eliquis patient started on heparin drip Patient encouraged to sleep on his left side in an attempt to help relief pressure from the right common femoral vein and right inferior vena cava Neurovascular assessment of the right lower extremity every shift Pain control Monitor vital signs Urology consultation Vascular consultation, planning intervention tomorrow with thrombectomy and stent placement Patient is full code DVT prophylaxis on heparin drip for recent diagnosis of DVT Anticipated length of stay more than 2 midnights
[2021-03-22] MEDS: ASCORBIC ACID 500 MG TAB PO SCH (12:37)
[2021-03-22] MEDS: FERROUS SULFATE 325 MG TAB PO SCH (12:37)
--- NOTE | 2021-03-22 16:27 | CT ---
EXAMINATION TYPE: CT angio chest DATE OF EXAM: 03/22/2021 COMPARISON: PET/CT 03/19/2021 HISTORY: DVT and history of urinary bladder carcinoma. CT DLP: 283 mGycm, Automated exposure control for dose reduction was used. CONTRAST: Performed injected with 80ml mL of Isovue 370. TECHNIQUE: Axial images were obtained at 5 mm thick sections. Reconstructed images are reviewed on [employer] computer in the coronal plane. FINDINGS: Portion of the thyroid visualized is normal. There is a 0.5 cm nodule adjacent to fissure on the right. Series 5 image 77. This was present on the PET/CT localization Streak opacities are at the lower lung donaldson bilaterally. No enlarged mediastinal or hilar adenopathy is evident. The ascending aorta diameter at the level o f the main pulmonary artery is 3.5 cm. The main pulmonary artery diameter at the bifurcation is 3.[address] sections are obtained through the upper abdomen. Abdomen is essentially unremarkable. IMPRESSIONS: 1. 0.5 cm nodule right mid lung. Short-term follow-up in 6 months is recommended.
[2021-03-23] MEDS: HEPARIN SOD,PORK IN 0.45% NACL 25,000 UNIT in 0.45% NACL 1 250ML.BAG IV SCH (00:07)
[2021-03-23] MEDS: HYDROmorphone 1 MG/ML 1 ML SYRINGE IVP PRN ×5 (02:02→22:17)
[2021-03-23] MEDS: HYDROcodone/APAP 5-325MG 1 EACH TAB PO PRN ×3 (03:33→20:34)
[2021-03-23 06:46] LABS: Basophils % (A) 0 %; Eosinophils # (A) 0.1 k/uL (0-0.7); Eosinophils % (A) 1 %; HCT 38.5 % (39.0-53.0); HGB 13.2 gm/dL (13.0-17.5); Lymphocytes # (A) 1.1 k/uL (1.0-4.8); Lymphocytes % (A) 17 %; MCH 33.1 pg (25.0-35.0); MCHC 34.3 g/dL (31.0-37.0); MCV 96.4 fL (80.0-100.0); Mean Platelet Volume 7.6; Monocytes # (A) 0.8 k/uL (0-1.0); Monocytes % (A) 12 %; Neutrophils # (A) 4.2 k/uL (1.3-7.7); Neutrophils % (A) 67 %; Platelet Count 241 k/uL (150-450); RDW 14.1 % (11.5-15.5); WBC 6.3 k/uL (3.8-10.6)
[2021-03-23] MEDS: GABAPENTIN 300 MG CAP PO SCH ×3 (07:07→20:34)
[2021-03-23] MEDS ORDERED: LIDOCAINE 1% INJ 10MG/ML (20 ML MDV) ONE (07:28)
[2021-03-23] MEDS ORDERED: IV FLUID CONTINUATION 1,000 ML IV ONE (07:45)
[2021-03-23] MEDS: MIDAZOLAM 2 MG/2 ML VIAL IV ONE ×2 (07:55→08:53)
[2021-03-23] MEDS ORDERED: LIDOCAINE 1% INJ 10MG/ML (20 ML MDV) SQ ONE (07:59)
[2021-03-23] MEDS ORDERED: HEPARIN SODIUM 1,000 UN/ML (10ML VL) ONE (08:19)
[2021-03-23] MEDS ORDERED: HEPARIN SODIUM 1,000 UN/ML (10ML VL) IV ONE (08:21)
[2021-03-23] MEDS ORDERED: HYDROmorphone 1 MG/ML 1 ML SYRINGE IVP ONE (09:16)
[2021-03-23 09:39] LABS: African American GFR (CKD) 66.8 (60.0-200.0); Anion Gap 12.2 mmol/L (10.00-18.00); BUN/Creat Ratio 13.31 Ratio (12.00-20.00); Blood Urea Nitrogen 17.3 mg/dL (9.0-27.0); Calcium 9.6 mg/dL (8.7-10.3); Carbon Dioxide 25.8 mmol/L (20.0-27.5); Magnesium 2.2 mg/dL (1.5-2.4); Non-African American GFR(CKD) 57.7 (60.0-200.0); Potassium 4.6 mmol/L (3.5-5.5)
[2021-03-23] MEDS ORDERED: .fentaNYL (PF) 50 MCG/ML AMP IV ONE (09:40)
[2021-03-23] MEDS ORDERED: IOPAMIDOL-250 100ML BTL INTRAARTER ONE ×2 (09:54→09:55)
[2021-03-23] MEDS: CHOLECALCIFEROL 125 MCG (5000 IU) TABLET PO SCH (09:59)
--- NOTE | 2021-03-23 13:22 | IR ---
EXAMINATION TYPE: IR radio division captain venous DATE OF EXAM: 03/23/2021 COMPARISON: NONE HISTORY: Fluoroscopy time. Fluoroscopy was provided to the referring clinician.
--- NOTE | 2021-03-23 14:44 | P.PN ---
Subjective Progress Note Date: 03/23/21 Attempted to see patient, but he was in procedures today during rounds. Objective - Vital Signs Vital signs: Vital Signs Temp 98.1 F 03/23/21 04:30 Pulse 86 03/23/21 14:26 Resp 16 03/23/21 14:26 BP 126/64 03/23/21 14:26 Pulse Ox 96 03/23/21 14:26 Intake & Output 03/22/21 03/23/21 03/23/21 18:59 06:59 18:59 Intake Total 218.415 242.267 100 Output Total 400 Balance 218.415 242.267 -300 Intake: IV 100 Intake, IV Titration 218.415 242.267 Amount Heparin Sod,Pork in 0.45% 218.415 242.267 NaCl 25,000 unit In 0.45 % NaCl 1 250ml.bag @ 18 UNITS/KG/HR 15.431 mls/hr IV .[id number] [facility] Rx#: [id number] Output: Urine 400 Other: Voiding Method Toilet Urinal # Voids 4 3 # Bowel Movements 0 - Exam Not available during rounds - Labs CBC & Chem 7: 03/23/21 05:38 03/23/21 05:38 Labs: Abnormal Lab Results - Last 24 Hours (Table) 03/22/21 03/23/21 03/23/21 Range/Units 15:13 05:38 05:38 RBC 4.00 L (4.30-5.90) m/uL Hct 38.5 L (39.0-53.0) % APTT 46.4 H (22.0-30.0) sec Est GFR (CKD-EPI)NonAf 57.7 L (60.0-200.0) Assessment and Plan Assessment: Right lower extremity DVT with worsening swelling most likely secondary to compromise of venous drainage due to pelvic mass History of bladder cancer possible recurrence Discontinue Eliquis patient started on heparin drip Patient encouraged to sleep on his left side in an attempt to help relief pressure from the right common femoral vein and right inferior vena cava Neurovascular assessment of the right lower extremity every shift Pain control Monitor vital signs Urology consultation, completed Vascular consultation, s/p thrombectomy and stent placement on 03/23 Oncology consultation is pending Patient is full code DVT prophylaxis on heparin drip for recent diagnosis of DVT Anticipated length of stay more than 2 midnights
[2021-03-23] MEDS: FERROUS SULFATE 325 MG TAB PO SCH (15:57)
[2021-03-23] MEDS: ASCORBIC ACID 500 MG TAB PO SCH (15:57)
[2021-03-23] MEDS: RIVAROXABAN 15 MG TAB PO SCH (17:05)
--- NOTE | 2021-03-23 20:42 | P.CONS ---
History of Present Illness - Reason for Consult Consult date: 03/23/21 metastatic urothelial carcinoma Requesting physician: Yasmani Lakhani - Chief Complaint abdominal distention and pain - History of Present Illness Mr Bhakta is a very pleasant 66-year-old male patient who was due to see Dr. Baca as a new patient consult today at the office. Unfortunately pt was having increased swelling and pain in the RLE, first noted about 2 months ago, persistent and then very progressive the last several days. Doppler showed extensive right lower extremity DVT. He was seen by Vascular. He has had thrombectomy a stent placed in the area where lymphadenopathy was felt to be compressing the vein leading to the blood clot. He was started on Xarelto. In regards to patient's recent symptoms, including new low back pain, legs aching and swelling and with history of urothelial carcinoma patient had a PET scan done 03/19/21. Unfortunately, it is showing FDG avid lymphadenopathy in the bilateral iliac areas as well as retroperitoneal LAD, consistent with metastatic disease. Patient has a history of urothelial carcinoma treated with MRI guided radiation 2 years ago. Patient is done very well since then. Patient states he is active. His only history is a remote history of smoking for 20 years one pack per day, quit 20 years ago. Patient did also work for [employer]. Status post thrombectomy patient states his legs feels much better, the swelling is already going down in the leg as well as in the groin. His foot is warm and he is feeling tingly and it but in a good way- he can feel the foot again. He denies any bleeding. Review of Systems 14 point review of systems is negative except as stated in HPI Past Medical History Past Medical History: Cancer, Deep Vein Thrombosis (DVT), Hearing Disorder / Deafness Additional Past Medical History / Comment(s): Current bladder cancer. Chronic back pain. Tinnitus/hard of hearing left ear. History of Any Multi-Drug Resistant Organisms: None Reported Past Surgical History: No Surgical Hx Reported Additional Past Surgical History / Comment(s): Colonoscopy Past Anesthesia/Blood Transfusion Reactions: No Reported Reaction Past Psychological History: No Psychological Hx Reported Smoking Status: Former smoker (20 year pack history of smoking, quit 20 years ago) Past Alcohol Use History: Occasional Past Drug Use History: Marijuana - Past Family History Father Family Medical History: Cancer Additional Family Medical History / Comment(s): Colorectal cancer. Medications and Allergies Home Medications Medication Instructions Recorded Confirmed Type Ascorbic Acid [Vitamin C] 1,000 mg PO AC-LUNCH 08/09/18 03/21/21 History Glucosamine Sulfate 500 mg PO AC-LUNCH 08/09/18 03/21/21 History Ferrous Sulfate [Iron (65 MG 325 mg PO AC-LUNCH 01/19/21 03/21/21 History Elemental)] Cholecalciferol (Vitamin D3) 125 mcg PO DAILY 03/21/21 03/21/21 History [Vitamin D3 (125 MCG = 5,000 IU)] Gabapentin 300 mg PO TID 03/21/21 03/21/21 History HYDROcodone/APAP 5-325MG [[place] 1 tab PO Q4H PRN 03/21/21 03/21/21 History 5-325] Ibuprofen [Motrin Ib] 600 mg PO Q8H PRN 03/21/21 03/21/21 History Rivaroxaban [Xarelto Starter Pack] See Taper PO DIRECTED 03/21/21 03/21/21 History Turmeric Root Extract [Turmeric] 500 mg PO AC-LUNCH 03/21/21 03/21/21 History Allergies Allergy/AdvReac Type Severity Reaction Status Date / Time No Known Allergies Allergy Verified 03/21/21 09:54 Physical Exam Vitals: Vital Signs Temp Pulse Pulse Resp BP Pulse Ox 03/23/21 17:08 96 16 128/71 96 03/23/21 15:30 82 16 125/62 96 03/23/21 14:26 86 16 126/64 96 03/23/21 13:26 82 16 118/72 96 03/23/21 12:26 82 16 121/66 96 03/23/21 11:56 95 16 131/79 96 03/23/21 11:26 82 16 121/72 96 03/23/21 11:11 78 16 127/72 96 03/23/21 10:56 80 16 128/69 96 03/23/21 10:41 72 16 117/60 96 03/23/21 10:26 78 16 122/59 96 03/23/21 10:11 92 16 134/73 96 03/23/21 04:30 98.1 F 83 16 116/71 96 Intake and Output 03/23/21 03/23/21 03/23/21 06:59 14:59 22:59 Intake Total 242.267 100 240 Output Total 400 Balance 242.267 -300 240 Intake: IV 100 Intake, IV Titration 242.267 Amount Heparin Sod,Pork in 0.45% 242.267 NaCl 25,000 unit In 0.45 % NaCl 1 250ml.bag @ 18 UNITS/KG/HR 15.431 mls/hr IV .[id number] [facility] Rx#: [id number] Oral 240 Output: Urine 400 Other: Voiding Method Toilet Urinal # Voids 3 200 - Constitutional General appearance: average body habitus, cooperative, no acute distress - EENT Eyes: anicteric sclerae, EOMI ENT: hearing grossly normal, normal oropharynx - Neck Neck: no lymphadenopathy - Respiratory Respiratory: bilateral: other (? rub with inspiration-heard throughout lungs anteriorly, nothing heard on expiration) - Cardiovascular Rhythm: regular Heart sounds: normal: S1, S2 Abnormal Heart Sounds: no systolic murmur, no diastolic murmur, no rub, no S3 Gallop, no S4 Gallop, no click, no other leg Peripheral Edema: right: 3+, left: None - Gastrointestinal General gastrointestinal: no absent bowel sounds, no decreased bowel sounds, no distended, no hepatomegaly, no hyperactive bowel sounds, normal bowel sounds, no organomegaly, no rigid, no scaphoid, soft, no splenomegaly, no tenderness, no umbilical hernia, no ventral hernia - Genitourinary patient states some genital swelling, he did not want me to examine the area. There is tenderness in the right groin with palpation. Unable to appreciate any inguinal adenopathy. - Integumentary Integumentary: normal, normal turgor - Neurologic Neurologic: CNII-XII intact - Musculoskeletal Musculoskeletal: strength equal bilaterally - Psychiatric Psychiatric: A&O x's 3, appropriate affect, intact judgment & insight Results CBC & Chem 7: 03/23/21 05:38 03/23/21 05:38 Labs: Abnormal Lab Results - Last 24 Hours (Table) 03/23/21 03/23/21 Range/Units 05:38 05:38 RBC 4.00 L (4.30-5.90) m/uL Hct 38.5 L (39.0-53.0) % Est GFR (CKD-EPI)NonAf 57.7 L (60.0-200.0) CT scan - chest: report reviewed Assessment and Plan (1) Neoplasm of unspecified behavior of bladder Narrative/Plan: PET scan report reviewed with the patient. Patient has FDG avid bilateral iliac and retroperitoneal adenopathy. Based on the imaging at appears that the lymphadenopathy is why he got the blood clot in the right lower extremity. I do not believe that any of these lymph nodes are amenable to core biopsy but, will review the case with Primary Oncologist and Interventional Radiology, if wanting a LN core biopsy. M.D. may prefer to do liquid biopsy in the office. It was discussed with the patient that based on the PET scan findings that this is most likely recurrent bladder cancer in the lymph nodes. There was no other organ involvement. Standard of care would be systemic chemotherapy. If the liquid biopsy is performed then next generation sequencing can be done and, if patient hasn't actionable mutation, targeted agents or IO may be appropriate. All of his questions were answered to the best of my ability at this time. I reassured the patient that he will be followed up and that we will make sure that he is aware of the next step so that we can continue to move forward and get him started on treatment as soon as possible. Current Visit: Yes Status: Acute Priority: High Code(s): D49.4 - NEOPLASM OF UNSPECIFIED BEHAVIOR OF BLADDER SNOMED Code(s): 411418638 (2) Right leg DVT Narrative/Plan: S/P thrombectomy with stent placement. Patient is on Xarelto. Patient has had significant improvement in his symptoms since the thrombectomy. Current Visit: Yes Status: Acute Priority: High Code(s): I82.401 - ACUTE EMBOLISM AND THOMBOS UNSP DEEP VEINS OF R LOW EXTREM SNOMED Code(s): 181637131 Plan: Patient is okay for discharge from a Hematology/Oncology standpoint once he is cleared by Attending and all other Consulted Physicians.
[2021-03-23] MEDS: SODIUM CHLORIDE 0.9% 1,000 ML IV SCH (23:24)
[2021-03-24] MEDS: HYDROcodone/APAP 5-325MG 1 EACH TAB PO PRN ×3 (01:03→12:37)
[2021-03-24] MEDS: HYDROmorphone 1 MG/ML 1 ML SYRINGE IVP PRN ×2 (03:27→09:22)
[2021-03-24 04:40] VITALS: TEMP 98.7
[2021-03-24] MEDS: RIVAROXABAN 15 MG TAB PO SCH (06:20)
--- NOTE | 2021-03-24 07:37 | P.OP ---
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 Ultrasound guided right popliteal vein access 2. Femoral, iliac and IVC venogram 3. Intravascular ultrasound of the right femoral, common iliac, external iliac and IVC 4. Percutaneous mechanical thrombectomy of the IVC, right common, external iliac vein and femoral vein with Clottriever 5. Percutaneous balloon venoplasty of the right common, external iliac vein and femoral vein 6. Percutaneous right common and external iliac vein stenting with Abre [id number] stent Implants: Abre stent [id number] Anesthesia: local, other (conscious sedation x 75mins) Surgeon: Josse Gomez Estimated Blood Loss (ml): 10 Pathology: none sent Condition: stable Disposition: PACU Indications for Procedure: 66 year old gentleman with history of bladder cancer with new enlarged lymph nodes in the right pelvic region who has been having severe symptoms of pain and swelling in his right leg. Patient was seen in the office last week and discussion was had about intravascular ultrasound of the right iliac vein to evaluate for compression and chronic occlusion. He was then having more severe pain in his right leg and was admitted from the ER for pain control and IV anticoagulation. His leg had increased in size and we discussed performing procedure while in hospital and he presents today for procedure. Operative Findings: Occlusion of the right common and external iliac vein with large collaterals across the pelvis to the left iliac vein. IVUS measurements. IVC: 102.5mm^2 R CIV: Pre- 43mm^2 Post- 175mm^2 R EIV: Pre- 51mm^2 Post- 96.8mm^2 R CFV: 117.9mm^2 Description of Procedure: After written and informed consent was obtained from the patient and all risks, benefits, and complications were described the patient was brought to the cath lab technologist and placed in a prone position. Timeout was performed in usual fashion. Utilizing ultrasound the popliteal vein was located and shown to be patent and compressible and was then cannulated with a micro-access needle and a 6F sheath was placed utilizing Seldinger technique. Venogram was then obtained demonstrating patency of the popliteal and femoral vein with occlusion at the common iliac and external iliac vein. .035 glidewire was then placed and using a crossing catheter the iliac occlusion was crossed and IVC was entered. IVC venogram was obtained demonstrating some filling defect at the confluence. An IVUS catheter was then placed and intravascular ultrasound was performed of the IVC, Iliacs and femoral veins demonstrating once again occlusion and thrombus at the confluence and iliac veins. A glidewire advantage wire was then placed and an In[place] 13F sheath was then placed. Patient was then administered heparin and followed with ACTs. A Clottriever was then placed into the IVC and mechanical thrombectomy was then performed with multiple passes with chronic thrombus was removed and upon repeat venogram slight improvement of flow was noted. Repeat IVUS was placed and demonstrated significant stenosis at the common iliac vein and external iliac vein. At that time a balloon venoplasty was performed by an 8x40mm balloon followed by a 40u25mm [place] balloon. After ballon venoplasty another IVUS was performed and again two areas of stenosis were noted and measurements obtained and a [id number] stent was chosen to be placed. An Abre [id number] stent was then placed at the common iliac vein extending to the external iliac vein in normal fashion. Once placed a post dilation venoplasty was performed and repeat IVUS was performed demonstrating resolution of stenosis and occlusion. Final venogram was obtained demonstrating improved flow without filling of the collaterals. There was still mild filling defect at the femoral vein and therefore balloon venoplasty with the 8x40mm balloon was performed. With significant improvement of flow. All wires, catheters and sheath was removed and pressure was held for hemostasis. Dressings were then placed and patient was sent to PACU.
[2021-03-24 08:30] LABS: Basophils % (A) 0 %; Eosinophils # (A) 0.1 k/uL (0-0.7); Eosinophils % (A) 1 %; HCT 37.8 % (39.0-53.0); HGB 12.7 gm/dL (13.0-17.5); Lymphocytes # (A) 0.8 k/uL (1.0-4.8); Lymphocytes % (A) 10 %; MCH 31.9 pg (25.0-35.0); MCHC 33.6 g/dL (31.0-37.0); MCV 94.8 fL (80.0-100.0); Mean Platelet Volume 7.6; Monocytes # (A) 0.7 k/uL (0-1.0); Monocytes % (A) 9 %; Neutrophils # (A) 6.2 k/uL (1.3-7.7); Neutrophils % (A) 79 %; Platelet Count 218 k/uL (150-450); RBC 3.99 m/uL (4.30-5.90); RDW 13.4 % (11.5-15.5); WBC 7.8 k/uL (3.8-10.6)
[2021-03-24 08:50] LABS: Calcium 9.9 mg/dL (8.4-10.2); Magnesium 2.2 mg/dL (1.6-2.3); Potassium 4.3 mmol/L (3.5-5.1)
[2021-03-24] MEDS: GABAPENTIN 300 MG CAP PO SCH (09:21)
[2021-03-24] MEDS: CHOLECALCIFEROL 125 MCG (5000 IU) TABLET PO SCH (09:23)
[2021-03-24 09:28] VITALS: RESP 16
[2021-03-24] MEDS: FERROUS SULFATE 325 MG TAB PO SCH (12:34)
[2021-03-24] MEDS: ASCORBIC ACID 500 MG TAB PO SCH (12:34)
[2021-03-24 12:41] VITALS: BP 129/69; PULSE 94
--- NOTE | 2021-03-24 13:14 | P.DS ---
Providers Date of admission: 03/21/21 00:19 Expected date of discharge: 03/24/21 Attending physician: Allison Wilson MD Consults: 03/21/21 00:19 Consult Physician Routine Consulting Provider: Garrison Garcia Consult Reason/Comments: known Do you want consulting provider notified?: Yes Consult Physician Routine Consulting Provider: Josse Gomez Consult Reason/Comments: known Do you want consulting provider notified?: Yes 03/22/21 11:42 Consult Physician Routine Consulting Provider: Ector Leblanc Consult Reason/Comments: metastatic urothelial Do you want consulting provider notified?: Yes Primary care physician: Mj Sanabria Hospital Course: Discharge Diagnosis: #Right lower extremity DVT likely secondary to compromise of venous drainage due to lymphadenopathy #History of bladder cancer possible recurrence Hospital Course: Patient is a 66-year-old male who presented to the ED with right lower extremity pain and swelling. Patient was seen by vascular surgery. He had a thrombectomy as well as a stent placed in the area where lymphadenopathy was felt to be compressing the vein leading to the blood clot. Patient's images were reviewed by oncology including his PET scan. Per oncology patient likely has recurrence of urothelial cancer with metastatic disease. Oncology recommended to follow up outpatient to get scheduled for biopsy. Vessel surgery restarted patient Xarelto. At the time of discharge patient reported that his right lower extremity was improving. He was looking forward to going home. General examination - Alert and Oriented 3 in NAD Heart - + S1S2 no murmurs Lungs - Clear to auscultation Abdomen soft NT ND +ve BS Extremities - swelling of the right lower extremity ANIMAL RIDE ATTENDANT - Moving all 4 extremities spontaneously Psych - Calm and cooperative A total of [32] minutes of time were spent preparing this complex discharge summary . Patient Condition at Discharge: Stable Plan - Discharge Summary Discharge Rx Participant: Yes New Discharge Prescriptions: Continue Ascorbic Acid [Vitamin C] 1,000 mg PO AC-LUNCH Glucosamine Sulfate 500 mg PO AC-LUNCH Ferrous Sulfate [Iron (65 MG Elemental)] 325 mg PO AC-LUNCH HYDROcodone/APAP 5-325MG [[place] 5-325] 1 tab PO Q4H PRN PRN Reason: Pain Gabapentin 300 mg PO TID Rivaroxaban [Xarelto Starter Pack] See Taper PO DIRECTED Cholecalciferol (Vitamin D3) [Vitamin D3 (125 MCG = 5,000 IU)] 125 mcg PO DAILY Discontinued Ibuprofen [Motrin Ib] 600 mg PO Q8H PRN PRN Reason: Pain Turmeric Root Extract [Turmeric] 500 mg PO AC-LUNCH Discharge Medication List Ascorbic Acid [Vitamin C] 1,000 mg PO AC-LUNCH 08/09/18 [History] Glucosamine Sulfate 500 mg PO AC-LUNCH 08/09/18 [History] Ferrous Sulfate [Iron (65 MG Elemental)] 325 mg PO AC-LUNCH 01/19/21 [History] Cholecalciferol (Vitamin D3) [Vitamin D3 (125 MCG = 5,000 IU)] 125 mcg PO DAILY 03/21/21 [History] Gabapentin 300 mg PO TID 03/21/21 [History] HYDROcodone/APAP 5-325MG [[place] 5-325] 1 tab PO Q4H PRN 03/21/21 [History] Rivaroxaban [Xarelto Starter Pack] See Taper PO DIRECTED 03/21/21 [History] Follow up Appointment(s)/Referral(s): Mj Sanabria MD [Primary Care Provider] - 1-2 days Ector Leblanc MD [STAFF PHYSICIAN] - 1 Week Discharge Disposition: HOME SELF-CARE
--- NOTE | 2021-03-24 15:14 | P.PN ---
Subjective Progress Note Date: 03/24/21 Patient is seen and examined lying in bed. He is status post op femoral iliac and IVC venogram, percutaneous mechanical thrombectomy of the IVC, right common and external iliac vein and femoral vein with clot Clotriever, percutaneous balloon venoplasty of the right common, external iliac vein and femoral vein and percutaneous right common and external iliac vein stenting. He states his right lower extremity pain has improved as well as swelling. He has been started on Xarelto. No complaints of any bleeding from the left popliteal. He has been up and ambulating to the restroom. Objective - Vital Signs Vital signs: Vital Signs Temp 98.7 F 03/24/21 04:00 Pulse 91 03/24/21 04:00 Resp 18 03/24/21 04:00 BP 127/77 03/24/21 04:00 Pulse Ox 97 03/24/21 04:00 Intake & Output 03/23/21 03/24/21 03/24/21 18:59 06:59 18:59 Intake Total 340 10 Output Total 400 Balance -60 10 Weight 90 kg Intake: IV 100 10 0.9 10 Oral 240 Output: Urine 400 Other: Voiding Method Toilet Toilet Urinal Urinal # Voids 200 1 - Exam General appearance: The patient is alert, oriented, in no acute distress. HET: Head is normocephalic and atraumatic. Neck: Supple without lymphadenopathy. Trachea midline. Heart: S1 S2. Regular rate and rhythm. Lungs: Clear to auscultation. Abdomen: Soft, nontender, nondistended. Extremities: Right lower extremity with redness and swelling. Palpable DP pulse. Patient has full range of motion of lower extremity. Popliteal access without any active bleeding, minimal bruising. Neurological: No focal deficits. Strength and sensation are grossly intact. - Labs CBC & Chem 7: 03/24/21 07:34 03/24/21 07:34 Labs: Abnormal Lab Results - Last 24 Hours (Table) 03/23/21 Range/Units 05:38 Est GFR (CKD-EPI)NonAf 57.7 L (60.0-200.0) Assessment and Plan Assessment: 1. 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 History of Bladder cancer Plan: 1. Continue Xarelto 2. Encourage ambulation 3. Recommend compression stockings to lower extremities 4. Patient is cleared for discharge from vascular surgery The impression and plan of care has been dictated as directed. Dr. Krause I performed a history and examination of this patient, discussed the same with the dictator. I agree with the dictator's note ,documented as a scribe. Any additional findings or plans will be noted.
--- NOTE | 2021-03-24 15:52 | P.PN ---
Subjective Progress Note Date: 03/24/21 Principal diagnosis: Possible recurrent bladder Cancer Patient with increased Lymph nodes in abdomen, Interventional radiology here has reviewed and felt the risk was too high for biopsy. We will set up for outpatient through [facility] with Dr. Gunter. Objective - Vital Signs Vital signs: Vital Signs Temp 98.7 F 03/24/21 04:00 Pulse 109 H 03/24/21 08:00 Resp 16 03/24/21 08:00 BP 134/84 03/24/21 08:00 Pulse Ox 98 03/24/21 08:00 Intake & Output 03/23/21 03/24/21 03/24/21 18:59 06:59 18:59 Intake Total 340 10 Output Total 400 Balance -60 10 Weight 90 kg Intake: IV 100 10 0.9 10 Oral 240 Output: Urine 400 Other: Voiding Method Toilet Toilet Toilet Urinal Urinal Urinal # Voids 200 1 - Exam Alert and Oriented NAD Neck: Supple Lungs: CTA Abdomen tender Heart RRR Ext BLE Edema - Labs CBC & Chem 7: 03/24/21 07:34 03/24/21 07:34 Labs: Abnormal Lab Results - Last 24 Hours (Table) 03/24/21 03/24/21 Range/Units 07:34 07:34 RBC 3.99 L (4.30-5.90) m/uL Hgb 12.7 L (13.0-17.5) gm/dL Hct 37.8 L (39.0-53.0) % Lymphocytes # 0.8 L (1.0-4.8) k/uL Sodium 136 L (137-145) mmol/L BUN 25 H (9-20) mg/dL Creatinine 1.33 H (0.66-1.25) mg/dL Glucose 111 H (74-99) mg/dL Assessment and Plan (1) Malignant neoplasm of lateral wall of bladder Status: Acute Code(s): C67.2 - MALIGNANT NEOPLASM OF LATERAL WALL OF BLADDER SNOMED Code(s): 377976220 Plan: COncern of recurrence, will set up biopsy as outpatient of Retroperitoneal nodes Physician attest: I have completed the full history and physical and agree with above dictation, dictated as a ascribe
== END 2021-03-24 14:31 | disposition home or self-care (01) | DRG 271 ==
LOC: EC 19:47 → 5NMEDONC 03-21 00:19 → 3SCARD 03-23 10:00
PROVIDERS: ADMIT Internal Medicine; ATTEND Internal Medicine
PROC: 067C3DZ Dilation of Right Common Iliac Vein with Intraluminal Device, Percutaneous Approach (ICD-10-PCS; principal; 2021-03-23 08:00)
PROC: 06C03ZZ Extirpation of Matter from Inferior Vena Cava, Percutaneous Approach (ICD-10-PCS; 2021-03-23 08:00)
PROC: 067F3DZ Dilation of Right External Iliac Vein with Intraluminal Device, Percutaneous Approach (ICD-10-PCS; 2021-03-23 08:00)
PROC: B5191ZZ Fluoroscopy of Inferior Vena Cava using Low Osmolar Contrast (ICD-10-PCS; 2021-03-23 08:00)
PROC: B44LZZZ Ultrasonography of Femoral Artery (ICD-10-PCS; 2021-03-23 08:00)
PROC: B44FZZZ Ultrasonography of Right Lower Extremity Arteries (ICD-10-PCS; 2021-03-23 08:00)
DX: I82.421 Acute embolism and thrombosis of right iliac vein (principal); I87.1 Compression of vein; C67.2 Malignant neoplasm of lateral wall of bladder; I82.529 Chronic embolism and thrombosis of unspecified iliac vein; H91.92 Unspecified hearing loss, left ear; Z79.01 Long term (current) use of anticoagulants; Z79.899 Other long term (current) drug therapy; Z80.0 Family history of malignant neoplasm of digestive organs; Z85.51 Personal history of malignant neoplasm of bladder; Z86.718 Personal history of other venous thrombosis and embolism; Z87.891 Personal history of nicotine dependence; Z20.822 Contact with and (suspected) exposure to COVID-19; G89.29 Other chronic pain; H93.19 Tinnitus, unspecified ear; M54.50 Low back pain, unspecified; M79.89 Other specified soft tissue disorders; R59.0 Localized enlarged lymph nodes; R60.0 Localized edema
CPT/HCPCS: 36415; 37187; 37188; 37238; 37252; 37253; 71275; 75820; 80048; 80053; 82248; 83615; 83690; 83735; 83880; 84100; 84484; 84550; 85025; 85379; 85610; 85730; 86140; 87635; 93005; 96374; 96375; 99285

== ENCOUNTER → 2021-05-15 | Outpatient (CLI) | payer BC ==
--- NOTE | 2021-05-15 23:02 | MR ---
EXAMINATION TYPE: MR brain wo/w con DATE OF EXAM: 05/15/2021 COMPARISON: None HISTORY: Bladder cancer, evaluate for metastatic disease. CONTRAST: Standard multiplanar, multisequence MRI departmental protocol images were obtained without contrast a nd with 8 mL intravenous Gadavist gadolinium contrast. Multiplanar multi echo imaging of the brain obtained without and with IV contrast. Ventricles have normal size. There is no mass effect or midline shift. There is no evidence of intrac ranial hemorrhage. There is mild cerebral atrophy. Corpus callosum is intact. Sella turcica appears n ormal. Diffusion images show no evidence of an acute infarct. The brainstem is intact. There is no ev idence of orbital mass. On the T2 and FLAIR images there are small foci of increased signal adjacent to the lateral ventricles measuring up to 3 mm. Doubtful significance. The contrast images show no pathologic enhancement. There is normal enhancement of the venous sinuses . Pituitary stalk is in the midline. Optic chiasm appears normal. IMPRESSION: Minimal atrophy. No evidence of metastatic disease. No acute intracranial abnormality.
== END | disposition home or self-care (01) ==
LOC: RADMRIMAIN 09:36
PROVIDERS: ATTEND Internal Medicine Hematology & Oncology
DX: C67.9 Malignant neoplasm of bladder, unspecified (principal)
CPT/HCPCS: 70553; A9585

== ENCOUNTER 2021-05-30 13:25 | Emergency (ER) | payer BC, OTHER ==
[2021-05-30] MEDS ORDERED: ONDANSETRON 4 MG/2 ML VIAL IVP STA (14:19)
[2021-05-30] MEDS ORDERED: HYDROmorphone 1 MG/ML 1 ML SYRINGE IVP STA (14:19)
[2021-05-30] MEDS ORDERED: SODIUM CHLORIDE 0.9% 1,000 ML IV STA (14:19)
[2021-05-30 14:44] LABS: Basophils % (A) 1 %; Eosinophils # (A) 0.1 k/uL (0-0.7); Eosinophils % (A) 1 %; HCT 37.7 % (39.0-53.0); HGB 11.8 gm/dL (13.0-17.5); Hypochromasia Slight; Lymphocytes # (A) 0.8 k/uL (1.0-4.8); Lymphocytes % (A) 11 %; MCH 29.9 pg (25.0-35.0); MCHC 31.3 g/dL (31.0-37.0); MCV 95.8 fL (80.0-100.0); Mean Platelet Volume 7.1; Monocytes # (A) 0.5 k/uL (0-1.0); Monocytes % (A) 7 %; Neutrophils # (A) 5.4 k/uL (1.3-7.7); Neutrophils % (A) 78 %; Platelet Count 477 k/uL (150-450); RBC 3.93 m/uL (4.30-5.90); RDW 13.4 % (11.5-15.5); WBC 6.9 k/uL (3.8-10.6)
[2021-05-30 14:54] LABS: Calcium 10.2 mg/dL (8.4-10.2); Potassium 4.5 mmol/L (3.5-5.1); Total Bilirubin 0.7 mg/dL (0.2-1.3); Total Protein 7.6 g/dL (6.3-8.2)
--- NOTE | 2021-05-30 15:01 | ED ---
General Adult HPI - General Chief complaint: Abdominal Pain Stated complaint: Abd pain Time Seen by Provider: 05/30/21 13:44 Source: patient, family Mode of arrival: ambulatory Limitations: no limitations - History of Present Illness Initial comments: 66-year-old male presents to the emergency room for a chief complaint of pain. Patient states he has bladder cancer. Patient states he is having pain in his abdomen leg and back. Patient states this is consistent with his usual pain. Patient states he gets pain in his likely is of a chronic blood clot. He gets pain in his back from chronic back pain. The pain in his abdomen is related to his bladder cancer. He usually gets [place] and has had fentanyl patches but is out of medication. He has an appointment with his oncology team tomorrow but the pain was not tolerable at home so wanted something to get him through.Patient has no other complaints at this time including shortness of breath, chest pain, nausea or vomiting, headache, or visual changes. - Related Data Home Medications Medication Instructions Recorded Confirmed Ascorbic Acid [Vitamin C] 1,000 mg PO AC-LUNCH 08/09/18 03/21/21 Glucosamine Sulfate 500 mg PO AC-LUNCH 08/09/18 03/21/21 Ferrous Sulfate [Iron (65 MG 325 mg PO AC-LUNCH 01/19/21 03/21/21 Elemental)] Cholecalciferol (Vitamin D3) 125 mcg PO DAILY 03/21/21 03/21/21 [Vitamin D3 (125 MCG = 5,000 IU)] Gabapentin 300 mg PO TID 03/21/21 03/21/21 HYDROcodone/APAP 5-325MG [[place] 1 tab PO Q4H PRN 03/21/21 03/21/21 5-325] Rivaroxaban [Xarelto Starter Pack] See Taper PO DIRECTED 03/21/21 03/21/21 Allergies Allergy/AdvReac Type Severity Reaction Status Date / Time No Known Allergies Allergy Verified 05/30/21 13:40 Review of Systems ROS Statement: Those systems with pertinent positive or pertinent negative responses have been documented in the HPI. ROS Other: All systems not noted in ROS Statement are negative. Past Medical History Past Medical History: Cancer, Deep Vein Thrombosis (DVT), Hearing Disorder / Deafness Additional Past Medical History / Comment(s): Current bladder cancer. Chronic back pain. Tinnitus/hard of hearing left ear. History of Any Multi-Drug Resistant Organisms: None Reported Past Surgical History: No Surgical Hx Reported Additional Past Surgical History / Comment(s): Colonoscopy Past Anesthesia/Blood Transfusion Reactions: No Reported Reaction Past Psychological History: No Psychological Hx Reported Smoking Status: Former smoker Past Alcohol Use History: Occasional Past Drug Use History: Marijuana - Past Family History Father Family Medical History: Cancer Additional Family Medical History / Comment(s): Colorectal cancer. General Exam Limitations: no limitations General appearance: alert, in no apparent distress Head exam: Present: atraumatic Eye exam: Present: normal appearance, PERRL, EOMI. Absent: scleral icterus, conjunctival injection ENT exam: Present: normal exam, mucous membranes moist Neck exam: Present: normal inspection, full ROM. Absent: tenderness Respiratory exam: Present: normal lung sounds bilaterally. Absent: respiratory distress, wheezes Cardiovascular Exam: Present: regular rate, normal rhythm, normal heart sounds Neurological exam: Present: alert Course Vital Signs 05/30/21 13:33 Temperature 98.1 F Pulse Rate 88 Respiratory 18 Rate Blood Pressure 161/89 O2 Sat by Pulse 100 Oximetry Medical Decision Making - Medical Decision Making Vitals are stable. CBC and CMP were unremarkable. Patient was given IV pain control which did help significantly with his symptoms. Patient is being discharged home to follow up with his oncologist tomorrow to discuss changing his medications. We will give him a fentanyl patch to get him through tonight as well as some Tylenol 3 for breakthrough pain which he should be able to tolerate given he was just on [place] 10's and fentanyl patch that he ran out of. Patient will return here for any worsening symptoms. Patient's family member is driving him home today. - Lab Data Result diagrams: 05/30/21 14:22 05/30/21 14:22 Lab Results 05/30/21 05/30/21 Range/Units 14:22 14:22 WBC 6.9 (3.8-10.6) k/uL RBC 3.93 L (4.30-5.90) m/uL Hgb 11.8 L (13.0-17.5) gm/dL Hct 37.7 L (39.0-53.0) % MCV 95.8 (80.0-100.0) fL MCH 29.9 (25.0-35.0) pg MCHC 31.3 (31.0-37.0) g/dL RDW 13.4 (11.5-15.5) % Plt Count 477 H (150-450) k/uL MPV 7.1 Neutrophils % 78 % Lymphocytes % 11 % Monocytes % 7 % Eosinophils % 1 % Basophils % 1 % Neutrophils # 5.4 (1.3-7.7) k/uL Lymphocytes # 0.8 L (1.0-4.8) k/uL Monocytes # 0.5 (0-1.0) k/uL Eosinophils # 0.1 (0-0.7) k/uL Basophils # 0.0 (0-0.2) k/uL Hypochromasia Slight Sodium 137 (137-145) mmol/L Potassium 4.5 (3.5-5.1) mmol/L Chloride 104 (98-107) mmol/L Carbon Dioxide 23 (22-30) mmol/L Anion Gap 10 mmol/L BUN 21 H (9-20) mg/dL Creatinine 1.03 (0.66-1.25) mg/dL Est GFR (CKD-EPI)AfAm 89 (>60 ml/min/1.73 sqM) Est GFR (CKD-EPI)NonAf 77 (>60 ml/min/1.73 sqM) Glucose 108 H (74-99) mg/dL Calcium 10.2 (8.4-10.2) mg/dL Total Bilirubin 0.7 (0.2-1.3) mg/dL AST 22 (17-59) U/L ALT 17 (4-49) U/L Alkaline Phosphatase 102 (38-126) U/L Total Protein 7.6 (6.3-8.2) g/dL Albumin 4.0 (3.5-5.0) g/dL Disposition Clinical Impression: Cancer associated pain Disposition: HOME SELF-CARE Condition: Good Instructions (If sedation given, give patient instructions): Chronic Pain (ED) Additional Instructions: Please take medications as directed. Follow-up with your oncologist tomorrow morning at your appointment as discussed. Return to the emergency room for any worsening symptoms. Is patient prescribed a controlled substance at d/c from ED?: No Referrals: None,Stated [Primary Care Provider] - 1-2 days Time of Disposition: 15:43
[2021-05-30] MEDS ORDERED: HYDROmorphone 0.5 MG/0.5 ML SYRINGE IVP STA (15:39)
[2021-05-30] MEDS ORDERED: ACET/COD 300 MG/30 MG STARTER PACK 6 TAB BTL PO STA (15:40)
[2021-05-30 16:22] VITALS: BP 121/71; PULSE 78; RESP 16; TEMP 98.2
== END 2021-05-30 16:21 | disposition home or self-care (01) ==
LOC: EC 13:25
DX: G89.3 Neoplasm related pain (acute) (chronic) (principal); H91.92 Unspecified hearing loss, left ear; Z87.891 Personal history of nicotine dependence
CPT/HCPCS: 36415; 80053; 85025; 99284; 96374; 96375; 96376; 96361; J2405; J1170 ×2

== ENCOUNTER 2021-07-08 13:28 | Emergency (ER) | payer BC ==
[2021-07-08 13:48] VITALS: RESP 16
[2021-07-08] MEDS ORDERED: oxyCODONE ER 15 MG TAB.ER.12H PO STA (14:16)
[2021-07-08 15:11] LABS: Partial Thromboplastin Time 23.7 sec (22.0-30.0); Prothrombin Time 11.3 sec (9.0-12.0)
[2021-07-08 15:17] LABS: Anisocytosis Slight; MCHC 32.2 g/dL (31.0-37.0); MCV 96.3 fL (80.0-100.0); Macrocytosis Slight; Mean Platelet Volume 7.5; Platelet Count 289 k/uL (150-450); RBC 3.53 m/uL (4.30-5.90); WBC 7.9 k/uL (3.8-10.6)
[2021-07-08 15:18] LABS: Albumin 2.9 g/dL (3.5-5.0); Calcium 8.3 mg/dL (8.4-10.2); Potassium 3.9 mmol/L (3.5-5.1); Total Bilirubin 0.3 mg/dL (0.2-1.3); Total Protein 4.9 g/dL (6.3-8.2)
--- NOTE | 2021-07-08 15:32 | ED ---
General Adult HPI - General Source: patient Mode of arrival: wheelchair Limitations: no limitations <Jacqueline English - Last Filed: 07/08/21 15:27> <Phillip Amaya - Last Filed: 07/08/21 18:33> - General Chief complaint: Urogenital Stated complaint: DVT - History of Present Illness Initial comments: 66-year-old male with past medical history of bladder cancer on hospice presents to the emergency department with worsening swelling to his left leg and genitals. Patient underwent treatment for bladder cancer last fall. At this time it was found that the patient had a DVT in his right leg and he started on Xarelto. Patient attempted to go through chemo and radiation however did not tolerate it well. In May he decided to go on hospice. States that for the past several weeks he has had increasing swelling to his genitals. As of the past 3 days he has had increasing swelling to the left leg. There is concern that the patient does have increased clot burden. Patient reports to a distended and tender abdomen. He presents to the emergency department for further evaluation of possible options to increase his comfort. He has been taking his pain medications as directed however does not adequately improve his pain, especially while sleeping. He admits to 30 pound weight gain. Denies any chest pain or shortness of breath. No issues with urination or defecation. No fevers. No other alleviating, precipitating or modifying factors (Jacqueline English) - Related Data Home Medications Medication Instructions Recorded Confirmed Gabapentin 300 mg PO TID@0000,0800,1600 03/21/21 07/08/21 Cyclobenzaprine [Flexeril] 5 mg PO TID@0000,0800,1600 06/04/21 07/08/21 OLANZapine 5 mg PO HS@0000 06/04/21 07/08/21 Sennosides/Docusate Sodium [Senna 2 cap PO HS@0000 06/04/21 07/08/21 Plus 8.6-50 mg Softgel] fentaNYL 75MCG/HR PATCH [Duragesic 1 patch TRANSDERM Q72H 06/04/21 07/08/21 75MCG/HR] oxyCODONE HCL [Roxicodone] 15 mg PO Q6H PRN 06/04/21 07/08/21 Dexamethasone [Decadron] 4 mg PO BID@0000,0800 07/08/21 07/08/21 Furosemide [Lasix] 40 mg PO DAILY@0800 07/08/21 07/08/21 Ibuprofen [Motrin] 600 mg PO TID@0000,0800,1600 07/08/21 07/08/21 Magnesium Hydroxide [Milk of 2,400 mg PO DAILY PRN 07/08/21 07/08/21 Magnesia] Menthol [Biofreeze] 1 applic TOPICAL Q6H PRN 07/08/21 07/08/21 Morphine Sulfate [Ms Contin] 60 mg PO TID@0000,0800,1600 07/08/21 07/08/21 Pantoprazole [Protonix] 40 mg PO AC-BRKFST 07/08/21 07/08/21 Potassium Chloride ER [K-Dur 10] 10 meq PO DAILY@0800 07/08/21 07/08/21 Rivaroxaban [Xarelto] 20 mg PO HS@0000 07/08/21 07/08/21 Allergies Allergy/AdvReac Type Severity Reaction Status Date / Time No Known Allergies Allergy Verified 07/08/21 15:47 Review of Systems ROS Other: All systems not noted in ROS Statement are negative. <Jacqueline English - Last Filed: 07/08/21 15:27> ROS Other: All systems not noted in ROS Statement are negative. <Phillip Amaya - Last Filed: 07/08/21 18:33> ROS Statement: Those systems with pertinent positive or pertinent negative responses have been documented in the HPI. Past Medical History Past Medical History: Cancer, Deep Vein Thrombosis (DVT), Hearing Disorder / D eafness Additional Past Medical History / Comment(s): Current bladder cancer. Chronic back pain. Tinnitus/hard of hearing left ear. History of Any Multi-Drug Resistant Organisms: None Reported Past Surgical History: No Surgical Hx Reported Additional Past Surgical History / Comment(s): Colonoscopy Past Anesthesia/Blood Transfusion Reactions: No Reported Reaction Past Psychological History: No Psychological Hx Reported Smoking Status: Former smoker Past Alcohol Use History: None Reported Past Drug Use History: None Reported - Past Family History Father Family Medical History: Cancer Additional Family Medical History / Comment(s): Colorectal cancer. <Jacqueline English - Last Filed: 07/08/21 15:27> General Exam Limitations: no limitations General appearance: alert, in no apparent distress Head exam: Present: atraumatic, normocephalic, normal inspection Eye exam: Present: normal appearance, PERRL, EOMI. Absent: scleral icterus, conjunctival injection, periorbital swelling ENT exam: Present: normal exam, mucous membranes moist Neck exam: Present: normal inspection. Absent: tenderness, meningismus, lymphadenopathy Respiratory exam: Present: normal lung sounds bilaterally. Absent: respiratory distress, wheezes, rales, rhonchi, stridor Cardiovascular Exam: Present: normal rhythm, tachycardia, normal heart sounds. Absent: systolic murmur, diastolic murmur, rubs, gallop, clicks GI/Abdominal exam: Present: distended, tenderness, diminished bowel sounds. Absent: guarding, rebound, rigid exam: Present: scrotal swelling Extremities exam: Present: pedal edema, other (Bilateral lower extremity swelling with weeping). Absent: tenderness, joint swelling, calf tenderness Back exam: Present: normal inspection Neurological exam: Present: alert, oriented X3, CN II-XII intact Psychiatric exam: Present: normal affect, normal mood Skin exam: Present: warm, dry, intact, normal color. Absent: rash <Jacqueline English - Last Filed: 07/08/21 15:27> Course Vital Signs 07/08/21 07/08/21 13:45 15:59 Temperature 98.2 F 97.0 F L Pulse Rate 110 H 101 H Respiratory 16 16 Rate Blood Pressure 120/74 135/88 O2 Sat by Pulse 96 93 L Oximetry Medical Decision Making - Lab Data Result diagrams: 07/08/21 14:14 07/08/21 14:14 <Jacqueline English - Last Filed: 07/08/21 15:27> - Lab Data Result diagrams: 07/08/21 14:14 07/08/21 14:14 <Phillip Amaya - Last Filed: 07/08/21 18:33> - Medical Decision Making Upon arrival patient is placed into room 18. A thorough history and physical exam was performed. Agreed to laboratory studies and imaging. IV is established laboratory studies were conducted. I did speak with Dr. Sheffield in regards to obtaining the appropriate imaging for the patient's complaints. Patient will have a CT of his abdomen and pelvis with delayed contrast to evaluate for clot burden. Laboratory studies are reviewed and patient is prepped for CT. Patient will be signed out to Dr. Amaya for further management. (Jacqueline English) Patient's care was signed out awaiting imaging. Patient is on hospice. He was inquiring about whether anything to be done about his lower extremity and scrotal edema. CT was performed with contrast to evaluate his stent and pain see of the IVC. He has an occluded right iliac stent. He does have flow to the IVC and his left iliac veins open. I discussed this with Dr. Gomez who is familiar with the patient, he does not recommend intervention given the patient's likelihood of recurrent thrombosis. He recommends continuing Xarelto and palliative care. No surgical intervention. Patient will be discharged home. He will continue pain management according to hospice care. (Phillip Amaya) - Lab Data Lab Results 07/08/21 07/08/21 07/08/21 Range/Units 14:14 14:14 14:14 WBC 7.9 (3.8-10.6) k/uL RBC 3.53 L (4.30-5.90) m/uL Hgb 11.0 L (13.0-17.5) gm/dL Hct 34.0 L (39.0-53.0) % MCV 96.3 (80.0-100.0) fL MCH 31.0 (25.0-35.0) pg MCHC 32.2 (31.0-37.0) g/dL RDW 19.0 H (11.5-15.5) % Plt Count 289 (150-450) k/uL MPV 7.5 Neutrophils % (Manual) 90 % Band Neuts % (Manual) 3 % Lymphocytes % (Manual) 3 % Monocytes % (Manual) 3 % Metamyelocytes % 1 % Neutrophils # (Manual) 7.30 (1.3-7.7) k/uL Lymphocytes # (Manual) 0.24 L (1.0-4.8) k/uL Monocytes # (Manual) 0.24 (0-1.0) k/uL Metamyelocytes # (Man) 0.08 H (0) k/uL Nucleated RBCs 0 (0-0) /100 WBC Manual Slide Review Performed Anisocytosis Slight Macrocytosis Slight PT 11.3 (9.0-12.0) sec INR 1.0 (<1.2) APTT 23.7 (22.0-30.0) sec Sodium 131 L (137-145) mmol/L Potassium 3.9 (3.5-5.1) mmol/L Chloride 97 L (98-107) mmol/L Carbon Dioxide 26 (22-30) mmol/L Anion Gap 8 mmol/L BUN 47 H (9-20) mg/dL Creatinine 1.28 H (0.66-1.25) mg/dL Est GFR (CKD-EPI)AfAm 68 (>60 ml/min/1.73 sqM) Est GFR (CKD-EPI)NonAf 59 (>60 ml/min/1.73 sqM) Glucose 155 H (74-99) mg/dL Plasma Lactic Acid Carlo (0.7-2.0) mmol/L Calcium 8.3 L (8.4-10.2) mg/dL Total Bilirubin 0.3 (0.2-1.3) mg/dL AST 26 (17-59) U/L ALT 33 (4-49) U/L Alkaline Phosphatase 57 (38-126) U/L Total Protein 4.9 L (6.3-8.2) g/dL Albumin 2.9 L (3.5-5.0) g/dL 07/08/21 Range/Units 14:14 WBC (3.8-10.6) k/uL RBC (4.30-5.90) m/uL Hgb (13.0-17.5) gm/dL Hct (39.0-53.0) % MCV (80.0-100.0) fL MCH (25.0-35.0) pg MCHC (31.0-37.0) g/dL RDW (11.5-15.5) % Plt Count (150-450) k/uL MPV Neutrophils % (Manual) % Band Neuts % (Manual) % Lymphocytes % (Manual) % Monocytes % (Manual) % Metamyelocytes % % Neutrophils # (Manual) (1.3-7.7) k/uL Lymphocytes # (Manual) (1.0-4.8) k/uL Monocytes # (Manual) (0-1.0) k/uL Metamyelocytes # (Man) (0) k/uL Nucleated RBCs (0-0) /100 WBC Manual Slide Review Anisocytosis Macrocytosis PT (9.0-12.0) sec INR (<1.2) APTT (22.0-30.0) sec Sodium (137-145) mmol/L Potassium (3.5-5.1) mmol/L Chloride (98-107) mmol/L Carbon Dioxide (22-30) mmol/L Anion Gap mmol/L BUN (9-20) mg/dL Creatinine (0.66-1.25) mg/dL Est GFR (CKD-EPI)AfAm (>60 ml/min/1.73 sqM) Est GFR (CKD-EPI)NonAf (>60 ml/min/1.73 sqM) Glucose (74-99) mg/dL Plasma Lactic Acid Carlo 2.0 (0.7-2.0) mmol/L Calcium (8.4-10.2) mg/dL Total Bilirubin (0.2-1.3) mg/dL AST (17-59) U/L ALT (4-49) U/L Alkaline Phosphatase (38-126) U/L Total Protein (6.3-8.2) g/dL Albumin (3.5-5.0) g/dL Disposition <Jacqueline English - Last Filed: 07/08/21 15:27> Is patient prescribed a controlled substance at d/c from ED?: No Time of Disposition: 17:52 <Phillip Amaya - Last Filed: 07/08/21 18:33> Clinical Impression: Neoplasm of unspecified behavior of bladder, Right leg swelling, Right leg DVT Disposition: HOME SELF-CARE Condition: Fair Instructions (If sedation given, give patient instructions): Deep Vein Thrombosis (ED) Referrals: Caren Mccormack MD [Primary Care Provider] - 1-2 days
[2021-07-08 15:36] LABS: Band Neutrophils % 3 %; Lymphocytes # (M) 0.24 k/uL (1.0-4.8); Metamyelocytes # (M) 0.08 k/uL (0); Metamyelocytes % 1 %; Monocytes # (M) 0.24 k/uL (0-1.0); Neutrophils % (M) 90 %; Nucleated Red Blood Cells 0 /100 WBC (0-0); Total Cells Counted 100
--- NOTE | 2021-07-08 15:59 | CT ---
EXAMINATION TYPE: CT abdomen pelvis w con DATE OF EXAM: 07/08/2021 COMPARISON: Most recent CT June 04, 2021 HISTORY: testicular swelling, abdominal pain, bladder ca, known DVT CT DLP: 2298 mGycm, Automated Exposure Control for Dose Reduction was Utilized. CONTRAST: CT scan of the abdomen and pelvis is performed without oral and with IV Contrast, patient injected wi th 80cc mL of Isovue 300. FINDINGS: LUNG BASES: Calcified right hilar lymph nodes redemonstrated. More prominent mild to moderate bibasil ar linear scarring and/or atelectasis. LIVER/GB: No significant abnormality is appreciated. PANCREAS: No significant abnormality is seen. SPLEEN: Numerous small calculi throughout the spleen consistent with product of old granulomatous dis ease. ADRENALS: No significant abnormality is seen. KIDNEYS: Persistent [id number] right-sided hydronephrosis. This is due to mass effect from ob structive adenopathy similar to prior study. BOWEL: Mild to moderate scattered colonic fecal prominence. No suspicious small or large bowel dilata tion. PROSTATE/SEMINAL VESICLES: No gross abnormality seen. LYMPH NODES: Persists an abnormal adenopathy in the retroperitoneum with confluent lymph nodes extend ing along the iliac chains vessels. OSSEOUS STRUCTURES: Persistent bilateral pars defect L5 level with grade 1 anterolisthesis of L5 on S 1. Persistent severe disc space narrowing L5-S1 level. OTHER: Persistent infrarenal IVC filter. Delayed phase images show increased density or patency of th e IVC below the filter. There is patency of the left sided draining iliac vessels. There is no increa sed density suggesting thrombus in the stent graft in the right common iliac vein extending into the external iliac vein. Slight increased density distal to the stent graft suggest patency into the righ t lower extremity. Evaluation suboptimal as technologist provides MPR coronal reconstructed delayed i mages. Moderate to severe diffuse subcutaneous edema over the bilateral lower extremities greater on the rig ht. Large bilateral scrotal fluid collection or hydroceles now identified. IMPRESSION: New Pelvic and right greater than left bilateral lower extremity subcutaneous edema and soft tissue swelling is felt on the basis of completely occluded right iliac vein stent graft.
[2021-07-08 16:02] VITALS: BP 135/88; PULSE 101; TEMP 97
== END 2021-07-08 19:10 | disposition home or self-care (01) ==
LOC: EC 13:28
DX: D49.4 Neoplasm of unspecified behavior of bladder (principal); I82.401 Acute embolism and thrombosis of unspecified deep veins of right lower extremity; Z87.891 Personal history of nicotine dependence
CPT/HCPCS: 36415; 80053; 83605; 85025; 85610; 85730; 74177; 99284; Q9967